=== PATIENT | female | born 1955 | race Caucasian/White ===

== ENCOUNTER 2019-01-06 13:29 | Observation (INO) ==
--- NOTE | 2019-01-06 13:46 | Emergency Department Note ---
Disposition Clinical Impression: Elevated transaminase level, Generalized weakness, Altered mental status, unspecified, Chronic kidney disease Disposition: Admitted As Inpatient Condition: Good General Adult HPI - General Chief complaint: ED Dizziness Stated complaint: headache,dizzy,nausea Time Seen by Provider: 01/06/19 13:44 Source: patient, family Limitations: no limitations - History of Present Illness Pain Scale: 10 - Related Data Home Medications Medication Instructions Recorded Confirmed Acetaminophen/Butalbital/Caffe 1 each PO Q6HR PRN 01/06/19 01/06/19 [Fioricet] Aspirin [Lo-Dose Aspirin EC] 81 mg PO DAILY 01/06/19 01/06/19 Furosemide [Lasix] 20 mg PO DAILY PRN 01/06/19 01/06/19 L. Acidophilus/Bifid. Animalis 1 each PO DAILY 01/06/19 01/06/19 [One-A-Day Trubiotics 2 Bill Cp] Levothyroxine [Synthroid] 37.5 mcg PO 0630 01/06/19 01/06/19 RX: Amlodipine Besylate 10 mg PO DAILY 01/06/19 01/06/19 RX: Atenolol [Tenormin] 50 - 75 mg PO HS PRN 01/06/19 01/06/19 RX: Famotidine [Pepcid] 20 mg PO DAILY 01/06/19 01/06/19 RX: Simvastatin [Zocor] 40 mg PO HS 01/06/19 01/06/19 RX: Spironolactone 50 mg PO BID 01/06/19 01/06/19 RX: Tizanidine HCl 4 mg PO Q6H 01/06/19 01/06/19 RX: cloNIDine HCl [CloNIDine HCl] 0.1 mg PO BID PRN 01/06/19 01/06/19 Tramadol HCl [Ultram] 50 mg PO Q6H 01/06/19 01/06/19 clonazePAM [Clonazepam] 1 mg PO Q6H 01/06/19 01/06/19 Allergies Allergy/AdvReac Type Severity Reaction Status Date / Time citalopram [From Celexa] Allergy Rash Verified 06/18/18 19:09 glycopyrrolate [From Robinul] Allergy Redness of Verified 06/18/18 19:09 Skin NSAIDS (Non-Steroidal AdvReac See Verified 01/06/19 15:55 Anti-Inflamma Comments IVP Dye Allergy Redness of Uncoded 08/14/15 11:00 Skin Past Medical History - Past Medical History Medical history: Reports: cancer, migraine, renal disease Surgical history: Reports: cholecystectomy, hysterectomy, orthopedic, other Psychiatric history: Reports: no psych history [place] history: Reports: cervical cancer - Social History Smoking Status: Never smoker Smokeless Tobacco Status: No Alcohol use: Reports: none Drug use: Reports: none Physical Exam - General Limitations: no limitations General appearance: alert, lethargic Course Vital Signs Temperature 0 F L 01/06/19 13:36 Pulse Rate 49 01/06/19 13:36 Respiratory Rate 16 01/06/19 13:36 Blood Pressure 86/58 01/06/19 13:36 O2 Sat by Pulse Oximetry 96 01/06/19 13:36 Temperature 97.5 F L 01/07/19 07:50 Pulse Rate 55 01/07/19 07:50 Respiratory Rate 17 01/07/19 07:50 Blood Pressure 112/73 01/07/19 07:50 O2 Sat by Pulse Oximetry 100 01/07/19 08:40 Oxygen Delivery Oxygen Delivery Room Air Medical Decision Making - Lab Data Result diagrams: 01/07/19 05:00 01/07/19 05:00 Lab Results 01/06/19 01/06/19 01/06/19 Range/Units 14:00 14:00 14:00 WBC 6.5 (4.3-11.1) K/mcL RBC 3.89 (3.82-4.97) M/mcL Hgb 11.9 (11.5-15.4) g/dL Hct 36.1 (35.3-44.9) % MCV 92.8 (83.0-100.0) fL MCH 30.6 (28.0-33.3) pg MCHC 33.0 (31.6-35.5) g/dL RDW 13.1 (11.5-14.5) % Plt Count 301 (140-400) K/mcL MPV 10.1 (9.4-12.4) fL Immature Gran % 0.3 (0-4) % Seg Neutrophils % 37.8 % Lymphocytes % 53.5 % Monocytes % 7.8 % Eosinophils % 0.3 % Basophils % 0.3 % Neutrophils # 2.5 (1.6-8.9) K/mcL Lymphocytes # 3.5 (0.6-4.6) K/mcL Monocytes # 0.5 (0.0-1.3) K/mcL Eosinophils # 0.0 (0.0-0.6) K/mcL Basophils # 0.0 (0.0-0.2) K/mcL PT (9.4-12.1) Seconds INR APTT (26.0-36.0) Seconds Sodium 137 (136-145) mEq/L Potassium 4.0 (3.5-5.1) mEq/L Chloride 102 (98-107) mEq/L Carbon Dioxide 25 (23-29) mEq/L BUN 14 (8-23) mg/dL Creatinine 1.51 H (0.60-1.20) mg/dL Est GFR ( Amer) 42 L (> 60) Est GFR (Non-Af Amer) 35 L (> 60) BUN/Creatinine Ratio 9 (6-26) Glucose 91 (70-105) mg/dL Calculated Osmolality 284 (280-300) Calcium 9.9 (8.6-10.3) mg/dL Total Bilirubin 0.5 (0.3-1.0) mg/dL AST 124 H (13-39) Units/L ALT 54 H (7-52) Units/L Alkaline Phosphatase 112 H (34-104) Units/L Ammonia 38 (16-53) mcmol/L Troponin I < 0.03 (< 0.04) ng/mL Serum Total Protein 7.5 (6.4-8.9) g/dL Albumin 4.5 (3.5-5.7) g/dL Globulin 3.0 (2.4-3.5) g/dL Albumin/Globulin Ratio 1.5 (1.1-2.2) Urine Color (Yellow) Urine Clarity (Clear) Urine pH (5.0-8.0) pH Units Ur Specific [place] (1.010-1.025) Urine Protein (Neg-Trace) mg/dL Urine Glucose (UA) (Normal) mg/dL Urine Ketones (Negative) mg/dL Urine Blood (Negative) Urine Nitrite (Negative) Urine Bilirubin (Negative) Urine Urobilinogen (Normal) mg/dL Ur Leukocyte Esterase (Negative) Urine Microscopic RBC (0-3) per hpf Urine Microscopic WBC (0-3) per hpf Ur Squamous Epith Cells (None-Few) per lpf Urine Bacteria (None-Few) per hpf Hyaline Casts (None-Few) per lpf Ur Culture Indicated? (NO) Ethyl Alcohol (Less than 10) mg/dL 01/06/19 01/06/19 01/06/19 Range/Units 14:00 15:41 15:44 WBC (4.3-11.1) K/mcL RBC (3.82-4.97) M/mcL Hgb (11.5-15.4) g/dL Hct (35.3-44.9) % MCV (83.0-100.0) fL MCH (28.0-33.3) pg MCHC (31.6-35.5) g/dL RDW (11.5-14.5) % Plt Count (140-400) K/mcL MPV (9.4-12.4) fL Immature Gran % (0-4) % Seg Neutrophils % % Lymphocytes % % Monocytes % % Eosinophils % % Basophils % % Neutrophils # (1.6-8.9) K/mcL Lymphocytes # (0.6-4.6) K/mcL Monocytes # (0.0-1.3) K/mcL Eosinophils # (0.0-0.6) K/mcL Basophils # (0.0-0.2) K/mcL PT 11.3 (9.4-12.1) Seconds INR 1.0 APTT 34.2 (26.0-36.0) Seconds Sodium (136-145) mEq/L Potassium (3.5-5.1) mEq/L Chloride (98-107) mEq/L Carbon Dioxide (23-29) mEq/L BUN (8-23) mg/dL Creatinine (0.60-1.20) mg/dL Est GFR ( Amer) (> 60) Est GFR (Non-Af Amer) (> 60) BUN/Creatinine Ratio (6-26) Glucose (70-105) mg/dL Calculated Osmolality (280-300) Calcium (8.6-10.3) mg/dL Total Bilirubin (0.3-1.0) mg/dL AST (13-39) Units/L ALT (7-52) Units/L Alkaline Phosphatase (34-104) Units/L Ammonia (16-53) mcmol/L Troponin I (< 0.04) ng/mL Serum Total Protein (6.4-8.9) g/dL Albumin (3.5-5.7) g/dL Globulin (2.4-3.5) g/dL Albumin/Globulin Ratio (1.1-2.2) Urine Color Yellow (Yellow) Urine Clarity Clear (Clear) Urine pH 6.0 (5.0-8.0) pH Units Ur Specific [place] 1.008 L (1.010-1.025) Urine Protein Negative (Neg-Trace) mg/dL Urine Glucose (UA) Normal (Normal) mg/dL Urine Ketones Negative (Negative) mg/dL Urine Blood Negative (Negative) Urine Nitrite Negative (Negative) Urine Bilirubin Negative (Negative) Urine Urobilinogen Normal (Normal) mg/dL Ur Leukocyte Esterase Small H (Negative) Urine Microscopic RBC 0-3 (0-3) per hpf Urine Microscopic WBC 0-3 (0-3) per hpf Ur Squamous Epith Cells Many H (None-Few) per lpf Urine Bacteria None Seen (None-Few) per hpf Hyaline Casts None Seen (None-Few) per lpf Ur Culture Indicated? NO. A (NO) Ethyl Alcohol < 10 (Less than 10) mg/dL Attestation Statement - Attestation Attestation: I examined this patient and my medical decision-making was reviewed with the Resident Physician. I agree with the documented findings, disposition and treatment plan as described except to the extent set forth below. [id number] time provided Patient is alert and answers questions appropriately but does seem sleepy upon arrival. She asks for water upon arrival. I evaluated her in conjunction with the resident physician Dr. Francis.
[2019-01-06] MEDS ORDERED: Metoclopramide 10 MG/2 ML VIAL IVP ONE (13:55)
[2019-01-06] MEDS ORDERED: 0.9 % Sodium Chloride 1,000 ML IVC ONE ×2 (13:55→15:29)
--- NOTE | 2019-01-06 13:55 | Emergency Department Note ---
Disposition Clinical Impression: Elevated transaminase level, Generalized weakness Altered mental status, unspecified Qualifiers: Altered mental status type: unspecified Qualified Code(s): R41.82 - Altered mental status, unspecified Chronic kidney disease Qualifiers: Chronic kidney disease stage: unspecified stage Qualified Code(s): N18.9 - Chronic kidney disease, unspecified Disposition: Admitted As Inpatient Condition: Good Time of Disposition: 18:13 General Adult HPI - General Chief complaint: ED Dizziness Stated complaint: headache,dizzy,nausea Time Seen by Provider: 01/06/19 13:44 Source: patient, family Limitations: no limitations Nursing Notes Reviewed: Yes Vital Signs Reviewed: Yes - History of Present Illness HPI Narrative: 63-year-old female history of chronic kidney disease presents to the emergency department for weakness headache and dizziness. States for the past few days she has been more weak. She began developing a headache to the left side. She has photophobia with nausea. No vomiting. She has a history of migraines sta eric this feels similar. She denies any fevers. She does report recent coffin congestion. She is experiencing some chest discomfort in the mid epigastric region without radiation. She was told by her car unloader Dr. Noriega to increase her fluid intake. Due to her illness she has not been drinking as much. She denies any urinary symptoms. She did have a influenza vaccine this year. History of hysterectomy and cholecystectomy. Pain Scale: 10 - Related Data Home Medications Medication Instructions Recorded Confirmed Acetaminophen/Butalbital/Caffe 1 each PO Q6HR PRN 01/06/19 01/06/19 [Fioricet] Amlodipine Besylate 10 mg PO DAILY 01/06/19 01/06/19 Aspirin [Lo-Dose Aspirin EC] 81 mg PO DAILY 01/06/19 01/06/19 Atenolol [Tenormin] 50 - 75 mg PO HS PRN 01/06/19 01/06/19 Famotidine [Pepcid] 20 mg PO DAILY 01/06/19 01/06/19 Furosemide [Lasix] 20 mg PO DAILY PRN 01/06/19 01/06/19 L. Acidophilus/Bifid. Animalis 1 each PO DAILY 01/06/19 01/06/19 [One-A-Day Trubiotics 2 Bill Cp] Levothyroxine [Synthroid] 37.5 mcg PO 0630 01/06/19 01/06/19 Simvastatin [Zocor] 40 mg PO HS 01/06/19 01/06/19 Spironolactone 50 mg PO BID 01/06/19 01/06/19 Tizanidine HCl 4 mg PO Q6H 01/06/19 01/06/19 Tramadol HCl [Ultram] 50 mg PO Q6H 01/06/19 01/06/19 cloNIDine HCl [CloNIDine HCl] 0.1 mg PO BID PRN 01/06/19 01/06/19 clonazePAM [Clonazepam] 1 mg PO Q6H 01/06/19 01/06/19 Allergies Allergy/AdvReac Type Severity Reaction Status Date / Time citalopram [From Celexa] Allergy Rash Verified 06/18/18 19:09 glycopyrrolate [From Robinul] Allergy Redness of Verified 06/18/18 19:09 Skin NSAIDS (Non-Steroidal AdvReac See Verified 01/06/19 15:55 Anti-Inflamma Comments IVP Dye Allergy Redness of Uncoded 08/14/15 11:00 Skin All systems ED: reviewed and negative except as stated. Review of Systems: As Per HPI Constitutional: Reports: weakness. Denies: fever, chills ENT ED: Reports: congestion Cardiovascular: Reports: chest pain Respiratory: Reports: cough. Denies: dyspnea Gastrointestinal: Reports: abdominal pain, nausea. Denies: vomiting, diarrhea, constipation Genitourinary: Denies: dysuria Musculoskeletal: Denies: back pain, neck pain Neurological: Reports: headache. Denies: weakness, numbness, confusion Endocrine: Reports: fatigue Past Medical History - Past Medical History Attestation: Yes The following information was validated with the patient. Source: patient Medical history: Reports: cancer, migraine, renal disease Surgical history: Reports: cholecystectomy, hysterectomy, orthopedic, other Psychiatric history: Reports: no psych history [employer] history: Reports: cervical cancer - Social History Smoking Status: Never smoker Smokeless Tobacco Status: No Alcohol use: Reports: none Drug use: Reports: none Physical Exam - General Limitations: no limitations General appearance: alert, in distress, other (Patient appears weak and ill) - Head Head exam: atraumatic, normocephalic, normal inspection - Eye Eye exam: Present: normal appearance, PERRL, EOMI, other (Pale conjunctiva). A bsent: scleral icterus - ENT ENT exam: normal exam, normal oropharynx, mucous membranes dry - Neck Neck exam: Present: normal inspection, full ROM, trachea midline. Absent: meningismus - Expanded Neck Exam Neck exam focused ED: Present: paraspinal tenderness. Absent: midline tende rness - Chest Chest inspection: Present: normal inspection, symmetric chest wall rise. Absent: tenderness - Respiratory Respiratory exam: Present: normal lung sounds bilaterally - Cardiovascular Cardiovascular exam: Present: regular rate, normal rhythm, normal heart sounds - Expanded Cardiovascular Exam Peripheral pulses: 2+: radial (R), radial (L) - Abdominal Exam Abdominal exam: Present: soft, Non-Tender, normal bowel sounds. Absent: tenderness, distention, guarding, rebound, rigidity - Extremities Exam Extremities exam: Present: normal inspection, full ROM, normal capillary refill. Absent: tenderness, pedal edema - Neurological Exam Neurological exam: Present: alert, oriented X3, CN II-XII intact, other (no aste rixis) - Expanded Neurological Exam Patient oriented to: Present: person, place, time Speech: Present: fluid speech Cranial nerves: EOM function (II, III, IV, ): Normal, facial sensation (V): Normal, facial palsy (VII): Normal, gag reflex (IX): Normal, spinal accessory function (XI): Normal, tongue deviation (XII): Normal Motor strength - LUE: 5/5 Motor strength - RUE: 5/5 Motor strength - LLE: 5/5 Motor strength - RLE: 5/5 Upper motor neuron exam: maye neglect: Absent bilaterally, pronator drift: Absent bilaterally Sensory exam upper extremity: light touch: Normal Sensory exam lower extremity: light touch: Normal Coma Scale Eye Opening: Spontaneous Coma Scale Motor Response: Obeys Commands Coma Scale Verbal Response: Oriented Coma Scale Total: 15 - Psychiatric Psychiatric exam: Present: normal affect, normal mood - Skin Skin exam: Present: warm, dry, intact, pallor. Absent: rash, cyanosis, diaphoresis Course Course Narrative: Patient presents with weakness and dizziness. Her blood pressure is low systolic 90s. She is not tachycardic her febrile. Neurologic exam is normal without focal deficits. Will check some labs include ammonia level. She reports a history of chronic kidney disease and suspect possible uremia. Will obtain a urinalysis as well. Patients agreeable to this plan. - Reevaluation(s) Reevaluation #1: Creatinine 1.5. This appears to be at her baseline. Her labs are otherwise unremarkable other than slightly elevated AST and ALT from baseline. She reports a history of hepatitis A as a child. She does not appear jaundice. CT scan of the abdomen did not reveal any intra-abdominal etiology. Diverticulosis was seen and no evidence of diverticulitis. Her abdominal pain and symptoms have gradually improved. She does report recent viral illness. Her influenza was negative. Do not suspect meningitis at this time. Her hypotension responded well to fluids. Last BP 106/64. Her a headache appears migrainous. She was given Reglan 10 mg, she is feeling better. She admits to a poor diet home given her history of chronic kidney disease. Review of her medication list shows multiple benzodiazepines. Suspect this could also be a common etiology for her symptoms. At this time will plan for admission given her generalized weakness and altered mental status for continued monitoring. - Consultations Consultation #1: Spoke with on-call hospitalist marques Flanagan to admit for AMS, generalized weakness. No further orders at this time Vital Signs Temperature 0 F L 01/06/19 13:36 Pulse Rate 49 01/06/19 13:36 Respiratory Rate 16 01/06/19 13:36 Blood Pressure 86/58 01/06/19 13:36 O2 Sat by Pulse Oximetry 96 01/06/19 13:36 Temperature 0 F L 01/06/19 13:36 Pulse Rate 59 01/06/19 16:52 Respiratory Rate 14 01/06/19 16:52 Blood Pressure 106/64 01/06/19 16:52 O2 Sat by Pulse Oximetry 100 01/06/19 16:52 Oxygen Delivery Oxygen Delivery Room Air Medical Decision Making - MDM Narrative Medical decision making narrative: Patient was discussed with my attending physician who agrees with ED management and final disposition. They independently evaluated the patient. Please refer to their attestation to this encounter for additional information. This note was generated by [employer] voice recognition software and as a result grammatical or spelling errors may occur using this program. - Medical Records Medical records reviewed: Yes I reviewed the patient's medical records. - Lab Data Lab results reviewed: Yes I reviewed the patient's lab results. Result diagrams: 01/06/19 14:00 01/06/19 14:00 Lab Results 01/06/19 01/06/19 01/06/19 Range/Units 14:00 14:00 14:00 WBC 6.5 (4.3-11.1) K/mcL RBC 3.89 (3.82-4.97) M/mcL Hgb 11.9 (11.5-15.4) g/dL Hct 36.1 (35.3-44.9) % MCV 92.8 (83.0-100.0) fL MCH 30.6 (28.0-33.3) pg MCHC 33.0 (31.6-35.5) g/dL RDW 13.1 (11.5-14.5) % Plt Count 301 (140-400) K/mcL MPV 10.1 (9.4-12.4) fL Immature Gran % 0.3 (0-4) % Seg Neutrophils % 37.8 % Lymphocytes % 53.5 % Monocytes % 7.8 % Eosinophils % 0.3 % Basophils % 0.3 % Neutrophils # 2.5 (1.6-8.9) K/mcL Lymphocytes # 3.5 (0.6-4.6) K/mcL Monocytes # 0.5 (0.0-1.3) K/mcL Eosinophils # 0.0 (0.0-0.6) K/mcL Basophils # 0.0 (0.0-0.2) K/mcL PT (9.4-12.1) Seconds INR APTT (26.0-36.0) Seconds Sodium 137 (136-145) mEq/L Potassium 4.0 (3.5-5.1) mEq/L Chloride 102 (98-107) mEq/L Carbon Dioxide 25 (23-29) mEq/L BUN 14 (8-23) mg/dL Creatinine 1.51 H (0.60-1.20) mg/dL Est GFR ( Amer) 42 L (> 60) Est GFR (Non-Af Amer) 35 L (> 60) BUN/Creatinine Ratio 9 (6-26) Glucose 91 (70-105) mg/dL Calculated Osmolality 284 (280-300) Calcium 9.9 (8.6-10.3) mg/dL Total Bilirubin 0.5 (0.3-1.0) mg/dL AST 124 H (13-39) Units/L ALT 54 H (7-52) Units/L Alkaline Phosphatase 112 H (34-104) Units/L Ammonia 38 (16-53) mcmol/L Troponin I < 0.03 (< 0.04) ng/mL Serum Total Protein 7.5 (6.4-8.9) g/dL Albumin 4.5 (3.5-5.7) g/dL Globulin 3.0 (2.4-3.5) g/dL Albumin/Globulin Ratio 1.5 (1.1-2.2) Urine Color (Yellow) Urine Clarity (Clear) Urine pH (5.0-8.0) pH Units Ur Specific [place] (1.010-1.025) Urine Protein (Neg-Trace) mg/dL Urine Glucose (UA) (Normal) mg/dL Urine Ketones (Negative) mg/dL Urine Blood (Negative) Urine Nitrite (Negative) Urine Bilirubin (Negative) Urine Urobilinogen (Normal) mg/dL Ur Leukocyte Esterase (Negative) Urine Microscopic RBC (0-3) per hpf Urine Microscopic WBC (0-3) per hpf Ur Squamous Epith Cells (None-Few) per lpf Urine Bacteria (None-Few) per hpf Hyaline Casts (None-Few) per lpf Ur Culture Indicated? (NO) Ethyl Alcohol (Less than 10) mg/dL 01/06/19 01/06/19 01/06/19 Range/Units 14:00 15:41 15:44 WBC (4.3-11.1) K/mcL RBC (3.82-4.97) M/mcL Hgb (11.5-15.4) g/dL Hct (35.3-44.9) % MCV (83.0-100.0) fL MCH (28.0-33.3) pg MCHC (31.6-35.5) g/dL RDW (11.5-14.5) % Plt Count (140-400) K/mcL MPV (9.4-12.4) fL Immature Gran % (0-4) % Seg Neutrophils % % Lymphocytes % % Monocytes % % Eosinophils % % Basophils % % Neutrophils # (1.6-8.9) K/mcL Lymphocytes # (0.6-4.6) K/mcL Monocytes # (0.0-1.3) K/mcL Eosinophils # (0.0-0.6) K/mcL Basophils # (0.0-0.2) K/mcL PT 11.3 (9.4-12.1) Seconds INR 1.0 APTT 34.2 (26.0-36.0) Seconds Sodium (136-145) mEq/L Potassium (3.5-5.1) mEq/L Chloride (98-107) mEq/L Carbon Dioxide (23-29) mEq/L BUN (8-23) mg/dL Creatinine (0.60-1.20) mg/dL Est GFR ( Amer) (> 60) Est GFR (Non-Af Amer) (> 60) BUN/Creatinine Ratio (6-26) Glucose (70-105) mg/dL Calculated Osmolality (280-300) Calcium (8.6-10.3) mg/dL Total Bilirubin (0.3-1.0) mg/dL AST (13-39) Units/L ALT (7-52) Units/L Alkaline Phosphatase (34-104) Units/L Ammonia (16-53) mcmol/L Troponin I (< 0.04) ng/mL Serum Total Protein (6.4-8.9) g/dL Albumin (3.5-5.7) g/dL Globulin (2.4-3.5) g/dL Albumin/Globulin Ratio (1.1-2.2) Urine Color Yellow (Yellow) Urine Clarity Clear (Clear) Urine pH 6.0 (5.0-8.0) pH Units Ur Specific [place] 1.008 L (1.010-1.025) Urine Protein Negative (Neg-Trace) mg/dL Urine Glucose (UA) Normal (Normal) mg/dL Urine Ketones Negative (Negative) mg/dL Urine Blood Negative (Negative) Urine Nitrite Negative (Negative) Urine Bilirubin Negative (Negative) Urine Urobilinogen Normal (Normal) mg/dL Ur Leukocyte Esterase Small H (Negative) Urine Microscopic RBC 0-3 (0-3) per hpf Urine Microscopic WBC 0-3 (0-3) per hpf Ur Squamous Epith Cells Many H (None-Few) per lpf Urine Bacteria None Seen (None-Few) per hpf Hyaline Casts None Seen (None-Few) per lpf Ur Culture Indicated? NO. A (NO) Ethyl Alcohol < 10 (Less than 10) mg/dL - Radiology Data Radiology results reviewed: Yes I reviewed the patient's radiology results. Chest X-Ray 01/06/19 13:51 IMPRESSION: No acute process. Stable exam D/ / Lionel Galdamez MD / Lionel Galdamez MD Interpreting Provider: Lionel Galdamez MD Head CT 01/06/19 13:51 IMPRESSION: No acute intracranial abnormality. D/ / Wm Harry / Wm Harry Interpreting Provider: Wm Harry Abdomen/Pelvis CT 01/06/19 15:35 IMPRESSION: 1. No acute abnormality within the abdomen and pelvis. 2. Status post cholecystectomy and hysterectomy. 3. Colonic diverticulosis without evidence of acute diverticulitis. D/ / Mulugeta Westbrook MD / Mulugeta Westbrook MD Interpreting Provider: Mulugeta Westbrook MD - EKG Data EKG #1 EKG attestation: Yes I reviewed and interpreted this EKG. EKG results narrative: EKG performed 1350 normal sinus rhythm 54 beats per minute, normal axis, good R wave progression, no ST elevation or depression. Compared to prior EKG performed 06/10/2014 with similar consistent findings. No acute ischemic changes.
[2019-01-06 14:16] LABS: Basophils % 0.3 %; Eosinophils % 0.3 %; Hematocrit 36.1 % (35.3-44.9); Hemoglobin 11.9 g/dL (11.5-15.4); Immature Granulocytes % 0.3 % (0-4); Lymphocytes # 3.5 K/mcL (0.6-4.6); Lymphocytes % 53.5 %; Mean Corpuscular Hemoglobin 30.6 pg (28.0-33.3); Mean Corpuscular Volume 92.8 fL (83.0-100.0); Mean Platelet Volume 10.1 fL (9.4-12.4); Monocytes # 0.5 K/mcL (0.0-1.3); Monocytes % 7.8 %; Neutrophils # 2.5 K/mcL (1.6-8.9); Platelet Count 301 K/mcL (140-400); Red Blood Count 3.89 M/mcL (3.82-4.97); Red Cell Distribution Width 13.1 % (11.5-14.5); Segmented Neutrophils % 37.8 %
[2019-01-06 14:27] LABS: Prothrombin Time 11.3 Seconds (9.4-12.1)
[2019-01-06 14:29] LABS: Activated Partial Thrombo Time 34.2 Seconds (26.0-36.0)
[2019-01-06 14:45] LABS: Alanine Aminotransferase 54 Units/L (7-52); Albumin 4.5 g/dL (3.5-5.7); Albumin/Globulin Ratio 1.5 (1.1-2.2); Alkaline Phosphatase 112 Units/L (34-104); Aspartate Amino Transferase 124 Units/L (13-39); BUN/Creatinine Ratio 9 (6-26); Bilirubin,Total 0.5 mg/dL (0.3-1.0); Blood Urea Nitrogen 14 mg/dL (8-23); Calcium 9.9 mg/dL (8.6-10.3); Carbon Dioxide 25 mEq/L (23-29); Chloride 102 mEq/L (98-107); Glucose 91 mg/dL (70-105); Osmolality,Calculated 284 (280-300); Sodium 137 mEq/L (136-145); Total Protein 7.5 g/dL (6.4-8.9); Troponin I < 0.03 ng/mL (< 0.04); eGFR For Non-African Americans 35 (> 60)
[2019-01-06] MEDS ORDERED: 0.9 % Sodium Chloride 1,000 ML ONE (15:31)
[2019-01-06 15:59] LABS: Bilirubin,Urine Negative (Negative); Blood,Urine Negative (Negative); Clarity,Urine Clear (Clear); Color,Urine Yellow (Yellow); Glucose,Urine (UA) Normal (Normal); Ketones,Urine Negative (Negative); Leukocyte Esterase,Urine Small (Negative); Nitrite,Urine Negative (Negative); Protein,Urine Negative (Neg-Trace); Specific Gravity,Urine 1.008 (1.010-1.025); Urobilinogen,Urine Normal (Normal)
[2019-01-06 16:00] LABS: Bacteria,Urine None Seen per hpf (None-Few); Hyaline Casts,Urine None Seen per lpf (None-Few); RBC,Urine 0-3 per hpf (0-3); Squamous Epithelial Cell,Urine Many per lpf (None-Few); WBC,Urine 0-3 per hpf (0-3)
[2019-01-06] MEDS ORDERED: *HR* Promethazine 25 MG/ML VIAL IVP PRN (18:13)
[2019-01-06] MEDS ORDERED: Naloxone 0.4 MG/ML INJ IVP PRN (18:13)
[2019-01-06] MEDS ORDERED: Ondansetron 4 MG/2 ML VIAL IVP PRN (18:13)
[2019-01-06] MEDS ORDERED: MOM Conc 10 ML UD.LIQ PO PRN (18:13)
--- NOTE | 2019-01-06 18:23 | Internal Med History&Physical ---
Date of Encounter: 01/06/19 Time of Encounter: 18:21 Internal Medicine - H&P: HPI Admitted From: Home Plans for Post Hospital Care: Home History of present illness: Ms. Martinez is a 63 year old female history of chronic kidney disease presents to the emergency department for weakness headache and dizziness. States for the past few days she has been more weak. She began developing a headache to the left side. She has photophobia with nausea. No vomiting. She has a history of migraines states this feels similar. She denies any fevers. She does report recent cough and congestion. She is experiencing some chest discomfort in the mid epigastric region without radiation. She was told by her administrative volunteer Dr. Noriega to increase her fluid intake. Due to her illness she has not been drinking as much. She denies any urinary symptoms. She did have a influenza vaccine this year. History of hysterectomy and cholecystectomy. In the ED, she was notable to have low blood pressure and bradycardia. Labs revealed elevated AST/LT/LP, elevated BUN/creatinine and a creatinine. Patient will be admitted for further evaluation. Patient will be full code while in the hospital. Past Med Surg Social Fam HX - Past Medical History Medical history: cancer, migraine, renal disease Additional medical history: Cervical CA Psychiatric history: no psych history - Past Surgical History Surgical History: cholecystectomy, hysterectomy, orthopedic, other Additional surgical history: Kidney - Social History Smoking Status: Never smoker Smokeless Tobacco Status: No Alcohol use: none Drug use: none Internal Medicine - H&P: Meds Acetaminophen/Butalbital/Caffe [Fioricet] 1 each PO Q6HR PRN 01/06/19 [History] Amlodipine Besylate 10 mg PO DAILY 01/06/19 [History] Aspirin [Lo-Dose Aspirin EC] 81 mg PO DAILY 01/06/19 [History] Atenolol [Tenormin] 50 - 75 mg PO HS PRN 01/06/19 [History] Famotidine [Pepcid] 20 mg PO DAILY 01/06/19 [History] Furosemide [Lasix] 20 mg PO DAILY PRN 01/06/19 [History] L. Acidophilus/Bifid. Animalis [One-A-Day Trubiotics 2 Bill Cp] 1 each PO DAILY 01/06/19 [History] Levothyroxine [Synthroid] 37.5 mcg PO 0630 01/06/19 [History] Simvastatin [Zocor] 40 mg PO HS 01/06/19 [History] Spironolactone 50 mg PO BID 01/06/19 [History] Tizanidine HCl 4 mg PO Q6H 01/06/19 [History] Tramadol HCl [Ultram] 50 mg PO Q6H 01/06/19 [History] cloNIDine HCl [CloNIDine HCl] 0.1 mg PO BID PRN 01/06/19 [History] clonazePAM [Clonazepam] 1 mg PO Q6H 01/06/19 [History] Allergy/AdvReac Type Severity Reaction Status Date / Time citalopram [From Celexa] Allergy Rash Verified 06/18/18 19:09 glycopyrrolate [From Robinul] Allergy Redness of Verified 06/18/18 19:09 Skin NSAIDS (Non-Steroidal AdvReac See Verified 01/06/19 15:55 Anti-Inflamma Comments IVP Dye Allergy Redness of Uncoded 08/14/15 11:00 Skin All Systems PM: A 10-system review of systems was performed and is negative for pertinent findings except as documented above in the HPI. Review of systems: REVIEW OF SYSTEMS: CONSTITUTIONAL: see HPI. HEENT: see HPI SKIN: No rash or itching. CARDIOVASCULAR: No palpitations or edema. RESPIRATORY: No shortness of breath, cough or sputum. GASTROINTESTINAL: No anorexia, nausea, vomiting or diarrhea. No abdominal pain or blood. GENITOURINARY: No dysuria, urgency, or frequency. NEUROLOGICAL: No headache, dizziness, syncope, paralysis, ataxia, numbness or tingling in the extremities. No change in bowel or bladder control. MUSCULOSKELETAL: No muscle, back pain, joint pain or stiffness. HEMATOLOGIC: No anemia, bleeding or bruising. LYMPHATICS: No enlarged nodes. No history of splenectomy. PSYCHIATRIC: No history of depression or anxiety. ENDOCRINOLOGIC: No reports of sweating, cold or heat intolerance. No polyuria or polydipsia. - Constitutional Vitals: Temp Pulse Resp BP Pulse Ox 0 F L 59 14 106/64 100 01/06/19 13:36 01/06/19 16:52 01/06/19 16:52 01/06/19 16:52 01/06/19 16:52 General appearance: Present: A&O X 3 Exam: PHYSICAL EXAMINATION: GENERAL APPEARANCE: The patient is alert, oriented and in no acute distress. HEENT: Head is normocephalic. The sinuses are nontender. Pupils are equal and reactive. The nares are patent. Oropharynx clear without lesions. NECK: neck pain illicited when beding head over to chest. HEART: Regular rate and rhythm. LUNGS: No crackles or wheezes are heard. ABDOMEN: Soft, nontender, nondistended with good bowel sounds heard. Inguinal area is normal. EXTREMITIES: Without cyanosis, clubbing or edema. NEUROLOGICAL: Gross nonfocal. SKIN: Warm and dry without any rash. Internal Med - H&P Results - Labs CBC & Chem 7: 01/06/19 14:00 01/06/19 14:00 Labs: Short CBC 01/06/19 Range/Units 14:00 WBC 6.5 (4.3-11.1) K/mcL Hgb 11.9 (11.5-15.4) g/dL Hct 36.1 (35.3-44.9) % Plt Count 301 (140-400) K/mcL Neutrophils # 2.5 (1.6-8.9) K/mcL BMP 01/06/19 14:00 Sodium 137 Potassium 4.0 Chloride 102 Carbon Dioxide 25 BUN 14 Creatinine 1.51 H Glucose 91 Calcium 9.9 Cardiac Enzymes 01/06/19 Range/Units 14:00 Troponin I < 0.03 (< 0.04) ng/mL Liver Function 01/06/19 Range/Units 14:00 Total Bilirubin 0.5 (0.3-1.0) mg/dL AST 124 H (13-39) Units/L ALT 54 H (7-52) Units/L Alkaline Phosphatase 112 H (34-104) Units/L Albumin 4.5 (3.5-5.7) g/dL Urine 01/06/19 Range/Units 15:41 Urine Color Yellow (Yellow) Urine Clarity Clear (Clear) Urine pH 6.0 (5.0-8.0) pH Units Ur Specific [place] 1.008 L (1.010-1.025) Urine Protein Negative (Neg-Trace) mg/dL Urine Glucose (UA) Normal (Normal) mg/dL - Impressions ITS Impressions Chest X-Ray 01/06/19 13:51 IMPRESSION: No acute process. Stable exam D/ / Lionel Galdamez MD / Lionel Galdamez MD Interpreting Provider: Lionel Galdamez MD Head CT 01/06/19 13:51 IMPRESSION: No acute intracranial abnormality. D/ / Wm Harry / Wm Harry Interpreting Provider: Wm Harry Abdomen/Pelvis CT 01/06/19 15:35 IMPRESSION: 1. No acute abnormality within the abdomen and pelvis. 2. Status post cholecystectomy and hysterectomy. 3. Colonic diverticulosis without evidence of acute diverticulitis. D/ / Mulugeta Westbrook MD / Mulugeta Westbrook MD Interpreting Provider: Mulugeta Westbrook MD - Assessment and Plan (1) Headache Current Visit: Yes Status: Acute Assessment and plan: 63-year-old female with history of migraine presented with acute onset of headache, associated with nausea, photophobia, and neck pain. She also reported change of nature of the headache comparing to her usual migraine headache. She stated the headaches are more severe, with neck pain, and also involved left side of the head, which were different from her usual migraine headache. Patient admitted that her granddaughter was sick recently with cough and congestion, prior to the headache, she also suffered a brief period of congestion and cough. On physical exam, patient does have neck rigidity. Although this appears to be another attack of migraine headache, viral meningitis was also highly suspected. - we will continue to treat patient migraine with Ferrecit, Zofran, aspirin. - We will add Naprosyn if indicated, but cautious about renal toxicity. - Supportive care for possible viral meningitis, if symptoms do not improve overnight, will consider lumbar puncture and MRI brain. Qualifiers: Headache type: unspecified Headache chronicity pattern: acute headache Intractability: not intractable Qualified Code(s): R51 - Headache (2) Generalized weakness Current Visit: Yes Status: Acute Assessment and plan: Continue to treat patient migraine, headache, and GI symptoms. Further workup to pursue if indicated. (3) Elevated transaminase level Current Visit: Yes Status: Acute Assessment and plan: Unknown etiology, patient admitted she has been taking Fioricet recently. Drug induced liver injury is likely. CT abdomen/pelvis was unremarkable. But this non-contrasted study has very limited diagnostic value. We will check viral hepatitis panel, right upper quadrant ultrasound. (4) Chronic kidney disease Current Visit: No Status: Chronic Assessment and plan: Creatinine at the baseline, avoid nephrotoxic Agent. Qualifiers: Chronic kidney disease stage: stage 3 (moderate) Qualified Code(s): N18.3 - Chronic kidney disease, stage 3 (moderate) (5) Migraine Current Visit: No Status: Chronic Assessment and plan: Same as above. Qualifiers: Migraine type: without aura Status migrainosus presence: without status migrainosus Intractability: not intractable Qualified Code(s): G43.009 - Migraine without aura, not intractable, without status migrainosus (6) DVT prophylaxis Current Visit: Yes Status: Acute Assessment and plan: Heparin subcutaneous. - Time Spent With Patient Total time spent is greater than 50% in coordination of care (as documented) at patient's floor/unit and/or counseling patient: Greater than 35 minutes
[2019-01-06] MEDS: tiZANidine 4 MG TABLET PO SCH (20:12)
[2019-01-06] MEDS: traMADol 50 MG TABLET PO SCH (20:12)
[2019-01-06] MEDS: clonazePAM 1 MG TABLET PO SCH (20:12)
[2019-01-06] MEDS: Acetaminophen/Butalbital/CaffeineTABLET PO PRN (20:13)
[2019-01-06] MEDS: Famotidine 20 MG TABLET PO SCH (22:46)
[2019-01-07] MEDS: Acetaminophen/Butalbital/CaffeineTABLET PO PRN ×3 (03:56→19:46)
[2019-01-07 05:46] LABS: Basophils % 0.7 %; Eosinophils % 0.2 %; Hematocrit 34.5 % (35.3-44.9); Hemoglobin 11.3 g/dL (11.5-15.4); Immature Granulocytes % 0.2 % (0-4); Lymphocytes % 43.6 %; Mean Corpuscular HGB Conc 32.8 g/dL (31.6-35.5); Mean Corpuscular Hemoglobin 30.6 pg (28.0-33.3); Mean Corpuscular Volume 93.5 fL (83.0-100.0); Mean Platelet Volume 10.1 fL (9.4-12.4); Monocytes # 0.4 K/mcL (0.0-1.3); Monocytes % 8.1 %; Neutrophils # 2.1 K/mcL (1.6-8.9); Platelet Count 255 K/mcL (140-400); Red Blood Count 3.69 M/mcL (3.82-4.97); Segmented Neutrophils % 47.2 %
[2019-01-07] MEDS: *HR* Heparin 5,000 UNIT/ML VIAL SQ SCH ×2 (06:06→18:17)
[2019-01-07 06:07] LABS: Albumin 4.1 g/dL (3.5-5.7); Albumin/Globulin Ratio 1.5 (1.1-2.2); Bilirubin,Total 0.3 mg/dL (0.3-1.0); Calcium 9.5 mg/dL (8.6-10.3); Globulin 2.7 g/dL (2.4-3.5); Potassium 3.9 mEq/L (3.5-5.1); Total Protein 6.8 g/dL (6.4-8.9)
[2019-01-07 07:29] LABS: Hepatitis B Surface Antigen Nonreactive (Nonreactive)
[2019-01-07] MEDS ORDERED: Famotidine 20 MG TABLET PO SCH (07:30)
[2019-01-07 07:57] LABS: Hepatitis C Virus Antibody Nonreactive (Nonreactive)
[2019-01-07 07:58] LABS: Hepatitis B Core IgM Nonreactive (Nonreactive)
[2019-01-07 07:59] LABS: Hepatitis A Antibody IgM Nonreactive (Nonreactive)
[2019-01-07] MEDS: traMADol 50 MG TABLET PO SCH ×4 (08:44→23:21)
[2019-01-07] MEDS: Famotidine 20 MG TABLET PO SCH (08:44)
[2019-01-07] MEDS: tiZANidine 4 MG TABLET PO SCH ×3 (08:44→18:12)
[2019-01-07] MEDS: clonazePAM 1 MG TABLET PO SCH ×4 (08:44→22:59)
[2019-01-07] MEDS: Aspirin Enteric Coated 81 MG Tablet PO SCH (08:44)
--- NOTE | 2019-01-07 09:36 | Internal Med Progress Note ---
Hospitalist Progress Note - Encounter Date of Encounter: 01/07/19 Time of Encounter: 09:34 - Subjective Interval History: Patient seen and examined in the room, she reported improved neck stiffness and headache. Nausea/vomiting has subsided. - Exam Vitals: Temp Pulse Resp BP Pulse Ox 97.5 F L 55 17 112/73 100 01/07/19 07:50 01/07/19 07:50 01/07/19 07:50 01/07/19 07:50 01/07/19 08:40 Exam: PHYSICAL EXAMINATION: GENERAL APPEARANCE: The patient is alert, oriented and in no acute distress. HEENT: Head is normocephalic. The sinuses are nontender. Pupils are equal and reactive. The nares are patent. Oropharynx clear without lesions. NECK: neck pain illicited when beding head over to chest. HEART: Regular rate and rhythm. LUNGS: No crackles or wheezes are heard. ABDOMEN: Soft, nontender, nondistended with good bowel sounds heard. Inguinal area is normal. EXTREMITIES: Without cyanosis, clubbing or edema. NEUROLOGICAL: Gross nonfocal. SKIN: Warm and dry without any rash. - Assessment and Plan (1) Headache Current Visit: Yes Status: Acute Assessment and Plan: 01/06 63-year-old female with history of migraine presented with acute onset of headache, associated with nausea, photophobia, and neck pain. She also reported change of nature of the headache comparing to her usual migraine headache. She stated the headaches are more severe, with neck pain, and also involved left side of the head, which were different from her usual migraine headache. Patient admitted that her granddaughter was sick recently with cough and pastora estion, prior to the headache, she also suffered a brief period of congestion and cough. On physical exam, patient does have neck rigidity. Although this appears to be another attack of migraine headache, viral meningitis was also highly suspected. - we will continue to treat patient migraine with Ferrecit, Zofran, aspirin. - We will add Naprosyn if indicated, but cautious about renal toxicity. - Supportive care for possible viral meningitis, if symptoms do not improve overnight, will consider lumbar puncture and MRI brain. 01/07 Overall symptoms have improved. We will continue current supportive care. (2) Generalized weakness Current Visit: Yes Status: Acute Assessment and Plan: Continue to treat patient migraine, headache, and GI symptoms. Further workup to pursue if indicated. (3) Elevated transaminase level Current Visit: Yes Status: Acute Assessment and Plan: Unknown etiology, patient admitted she has been taking Fioricet recently. Drug induced liver injury is likely. CT abdomen/pelvis was unremarkable. But this non-contrasted study has very limited diagnostic value. Negative viral hepatitis panel, pending liver ultrasound. (4) Chronic kidney disease Current Visit: No Status: Chronic Assessment and Plan: Creatinine at the baseline, avoid nephrotoxic Agent. (5) Migraine Current Visit: No Status: Chronic Assessment and Plan: Same as above. (6) DVT prophylaxis Current Visit: Yes Status: Acute Assessment and Plan: Heparin subcutaneous. - Time Spent with Patient Total time spent is greater than 50% in coordination of care (as documented) at patient's floor/unit and/or counseling patient: Greater than 35 minutes Plan of Care Discussed with: patient Internal Medicine: Result - Labs CBC & Chem 7: 01/07/19 05:00 01/07/19 05:00 Labs: Short CBC 01/06/19 01/07/19 Range/Units 14:00 05:00 WBC 6.5 4.5 (4.3-11.1) K/mcL Hgb 11.9 11.3 L (11.5-15.4) g/dL Hct 36.1 34.5 L (35.3-44.9) % Plt Count 301 255 (140-400) K/mcL Neutrophils # 2.5 2.1 (1.6-8.9) K/mcL BMP 01/06/19 01/07/19 14:00 05:00 Sodium 137 141 Potassium 4.0 3.9 Chloride 102 106 Carbon Dioxide 25 23 BUN 14 15 Creatinine 1.51 H 1.24 H Glucose 91 82 Calcium 9.9 9.5 Cardiac Enzymes 01/06/19 Range/Units 14:00 Troponin I < 0.03 (< 0.04) ng/mL Liver Function 01/06/19 01/07/19 Range/Units 14:00 05:00 Total Bilirubin 0.5 0.3 (0.3-1.0) mg/dL AST 124 H 57 H (13-39) Units/L ALT 54 H 56 H (7-52) Units/L Alkaline Phosphatase 112 H 109 H (34-104) Units/L Albumin 4.5 4.1 (3.5-5.7) g/dL Urine 01/06/19 Range/Units 15:41 Urine Color Yellow (Yellow) Urine Clarity Clear (Clear) Urine pH 6.0 (5.0-8.0) pH Units Ur Specific [place] 1.008 L (1.010-1.025) Urine Protein Negative (Neg-Trace) mg/dL Urine Glucose (UA) Normal (Normal) mg/dL - ABG Interpretation ABG results: PT/INR, D-dimer PT 11.3 Seconds (9.4-12.1) 01/06/19 14:00 - Impressions Impressions Chest X-Ray 01/06/19 13:51 IMPRESSION: No acute process. Stable exam D/ / Lionel Galdamez MD / Lionel Galdamez MD Interpreting Provider: Lionel Galdamez MD Head CT 01/06/19 13:51 IMPRESSION: No acute intracranial abnormality. D/ / Wm Harry / Wm Harry Interpreting Provider: Wm Harry Abdomen/Pelvis CT 01/06/19 15:35 IMPRESSION: 1. No acute abnormality within the abdomen and pelvis. 2. Status post cholecystectomy and hysterectomy. 3. Colonic diverticulosis without evidence of acute diverticulitis. D/ / Mulugeta Westbrook MD / Mulugeta Westbrook MD Interpreting Provider: Mulugeta Westbrook MD Consult Discharge Plan - Plan Referrals: Jose G Salazar DO [Primary Care Provider] - (1) Headache Qualifiers: Headache type: unspecified Headache chronicity pattern: acute headache Intractability: not intractable Qualified Code(s): R51 - Headache (4) Chronic kidney disease Qualifiers: Chronic kidney disease stage: stage 3 (moderate) Qualified Code(s): N18.3 - Chronic kidney disease, stage 3 (moderate) (5) Migraine Qualifiers: Migraine type: without aura Status migrainosus presence: without status migrainosus Intractability: not intractable Qualified Code(s): G43.009 - Migraine without aura, not intractable, without status migrainosus
[2019-01-08] MEDS: tiZANidine 4 MG TABLET PO SCH ×2 (01:02→07:53)
[2019-01-08] MEDS: Acetaminophen/Butalbital/CaffeineTABLET PO PRN ×2 (04:34→11:22)
[2019-01-08] MEDS: *HR* Heparin 5,000 UNIT/ML VIAL SQ SCH (04:34)
[2019-01-08 05:43] LABS: Albumin 4.1 g/dL (3.5-5.7); Albumin/Globulin Ratio 1.5 (1.1-2.2); Bilirubin,Total 0.3 mg/dL (0.3-1.0); Calcium 9.9 mg/dL (8.6-10.3); Globulin 2.8 g/dL (2.4-3.5); Potassium 3.4 mEq/L (3.5-5.1); Total Protein 6.9 g/dL (6.4-8.9)
[2019-01-08] MEDS: clonazePAM 1 MG TABLET PO SCH (07:53)
[2019-01-08] MEDS: Aspirin Enteric Coated 81 MG Tablet PO SCH (07:53)
[2019-01-08] MEDS: Famotidine 20 MG TABLET PO SCH (07:53)
[2019-01-08] MEDS: traMADol 50 MG TABLET PO SCH (07:53)
--- NOTE | 2019-01-08 10:21 | Discharge Summary ---
- NOTES TO OUTPATIENT PROVIDER Notes to Outpatient Provider: f/u with PCP within 2 weeks. Orders not resulted at time of discharge: Pending orders 01/08/19 10:00 US liver [US] Routine Date of Encounter: 01/08/19 Time of Encounter: 10:19 - Discharge Diagnosis (1) Headache Priority: Primary Status: Acute Qualifiers: Headache type: unspecified Headache chronicity pattern: acute headache Intractability: not intractable Qualified Code(s): R51 - Headache (2) Generalized weakness Priority: Primary Status: Acute (3) Elevated transaminase level Priority: Primary Status: Acute (4) Chronic kidney disease Priority: Secondary Status: Chronic Qualifiers: Chronic kidney disease stage: stage 3 (moderate) Qualified Code(s): N18.3 - Chronic kidney disease, stage 3 (moderate) (5) Migraine Priority: Secondary Status: Chronic Qualifiers: Migraine type: without aura Status migrainosus presence: without status migrainosus Intractability: not intractable Qualified Code(s): G43.009 - Migraine without aura, not intractable, without status migrainosus (6) DVT prophylaxis Priority: Primary Status: Acute Hospital course: Ms. Martinez is a 63 year old female history of chronic kidney disease presents to the emergency department for weakness headache and dizziness. States for the past few days she has been more weak. She began developing a headache to the left side. She has photophobia with nausea. No vomiting. She has a history of migraines states this feels similar. She denies any fevers. She does report recent cough and congestion. She is experiencing some chest discomfort in the mid epigastric region without radiation. She was told by her bank compliance officer Dr. Noriega to increase her fluid intake. Due to her illness she has not been drinking as much. She denies any urinary symptoms. She did have a influenza vaccine this year. History of hysterectomy and cholecystectomy. In the ED, she was notable to have low blood pressure and bradycardia. Labs revealed elevated AST/LT/LP, elevated BUN/creatinine and creatinine. Patient will be admitted for further evaluation. Patient blood pressure medicine including Lasix was discontinued. Viral hepatitis panel was negative. She was treated with supportive care and her symptoms including headache, nausea, vomiting, dizziness, and weakness have significantly improved. Renal function has improved to her baseline. Her transaminases and the ALP returned to normal limits. Right upper quadrant Doppler was unremarkable. Patient is discharged home today, she was instructed to follow-up with PCP within 2 weeks. Discharge discussed with: patient Time spent discussing smoking cessation with patient: more than 10 minutes - Time Spent with Patient Total time spent providing and/or coordinating discharge services: Time spent: Greater than 30 minutes - Discharge Medications Prescriptions: Continue Levothyroxine [Synthroid] 37.5 mcg PO 0630 Acetaminophen/Butalbital/Caffe [Fioricet] 1 each PO Q6HR PRN PRN Reason: Migraine Headache Simvastatin [Zocor] 40 mg PO HS Famotidine [Pepcid] 20 mg PO DAILY Amlodipine Besylate 10 mg PO DAILY Tramadol HCl [Ultram] 50 mg PO Q6H Tizanidine HCl 4 mg PO Q6H Spironolactone 50 mg PO BID Furosemide [Lasix] 20 mg PO DAILY PRN PRN Reason: Swelling cloNIDine HCl [CloNIDine HCl] 0.1 mg PO BID PRN PRN Reason: See Comments clonazePAM [Clonazepam] 1 mg PO Q6H Atenolol [Tenormin] 50 - 75 mg PO HS PRN PRN Reason: See Comments L. Acidophilus/Bifid. Animalis [One-A-Day Trubiotics 2 Bill Cp] 1 each PO DAILY Aspirin [Lo-Dose Aspirin EC] 81 mg PO DAILY Home Medications: Acetaminophen/Butalbital/Caffe [Fioricet] 1 each PO Q6HR PRN 01/06/19 [History] Amlodipine Besylate 10 mg PO DAILY 01/06/19 [History] Aspirin [Lo-Dose Aspirin EC] 81 mg PO DAILY 01/06/19 [History] Atenolol [Tenormin] 50 - 75 mg PO HS PRN 01/06/19 [History] Famotidine [Pepcid] 20 mg PO DAILY 01/06/19 [History] Furosemide [Lasix] 20 mg PO DAILY PRN 01/06/19 [History] L. Acidophilus/Bifid. Animalis [One-A-Day Trubiotics 2 Bill Cp] 1 each PO DAILY 01/06/19 [History] Levothyroxine [Synthroid] 37.5 mcg PO 0630 01/06/19 [History] Simvastatin [Zocor] 40 mg PO HS 01/06/19 [History] Spironolactone 50 mg PO BID 01/06/19 [History] Tizanidine HCl 4 mg PO Q6H 01/06/19 [History] Tramadol HCl [Ultram] 50 mg PO Q6H 01/06/19 [History] cloNIDine HCl [CloNIDine HCl] 0.1 mg PO BID PRN 01/06/19 [History] clonazePAM [Clonazepam] 1 mg PO Q6H 01/06/19 [History] Allergies/Adverse Reactions: Allergy/AdvReac Type Severity Reaction Status Date / Time citalopram [From Celexa] Allergy Rash Verified 06/18/18 19:09 glycopyrrolate [From Robinul] Allergy Redness of Verified 06/18/18 19:09 Skin NSAIDS (Non-Steroidal AdvReac See Verified 01/06/19 15:55 Anti-Inflamma Comments IVP Dye Allergy Redness of Uncoded 08/14/15 11:00 Skin Date of admission: 01/06/19 17:53 Primary care physician: Raymond Salazar DO Anticipated date of discharge: 01/08/19 - Constitutional Vitals: Temp Pulse Resp BP Pulse Ox 97.9 F 60 16 143/77 98 01/08/19 06:49 01/08/19 06:49 01/08/19 06:49 01/08/19 06:49 01/08/19 06:49 General appearance: Present: A&O X 3 Exam: PHYSICAL EXAMINATION: GENERAL APPEARANCE: The patient is alert, oriented and in no acute distress. HEENT: Head is normocephalic. The sinuses are nontender. Pupils are equal and reactive. The nares are patent. Oropharynx clear without lesions. NECK: neck pain illicited when beding head over to chest. HEART: Regular rate and rhythm. LUNGS: No crackles or wheezes are heard. ABDOMEN: Soft, nontender, nondistended with good bowel sounds heard. Inguinal area is normal. EXTREMITIES: Without cyanosis, clubbing or edema. NEUROLOGICAL: Gross nonfocal. SKIN: Warm and dry without any rash. - Patient Status Disposition: Home, Self-Care Condition: Good Functional capacity at discharge: independent ambulation Overall status at discharge: patient is progressing back to baseline - Discharge Instructions Follow Up With: Jose G Salazar DO [Primary Care Provider] - - Diet and Activity Activity: increase activity as tolerated Diet: advance to your usual diet
[2019-01-08 11:18] VITALS: BP 106/67
--- NOTE | 2019-01-08 16:42 | Electrocardiograph Report ---
[address] [address] Test Date: 2019-01-06 Pat Name: Simin Martinez Department: [id number] Room: 3B65 Gender: F Dining Room Supervisor: : [id number] Requested By: Wm Francis Order Number: [id number] Reading MD: Rosa Edmondson Measurements Intervals [place] Rate: 54 P: 77 [place]: 209 QRS: 37 QRSD: 92 T: 45 QT: 451 QTc: 428 Interpretive Statements Sinus rhythm Abnormal R-wave progression, early transition Electronically Signed On 01-08-2019 16:41:10 EDT by Rosa Edmondson
== END 2019-01-08 16:32 | disposition home or self-care (01) ==
LOC: 3BNU 13:29 → EMEROOARM 13:29 → 3BNU 18:37
PROVIDERS: ADMIT Internal Medicine; ATTEND Student in an Organized Health Care Education/Training Program

== ENCOUNTER 2019-06-06 18:01 | Observation (INO) ==
--- NOTE | 2019-06-06 19:15 | Emergency Department Note ---
Disposition Clinical Impression: Acute renal insufficiency, Elevated troponin I level Chest pain Qualifiers: Chest pain type: unspecified Qualified Code(s): R07.9 - Chest pain, unspecified Disposition: Admitted As Inpatient Condition: Good Time of Disposition: 22:35 General Adult HPI - General Chief complaint: ED Back Pain/Injury Stated complaint: Back, Shoulder and Neck pain Time Seen by Provider: 06/06/19 18:57 Source: patient Limitations: no limitations Nursing Notes Reviewed: Yes Vital Signs Reviewed: Yes - History of Present Illness HPI Narrative: This 3-year-old female presents emergency department with concern for having bilateral shoulder discomfort, worse pain on the left, left lower quadrant abdominal pain and back pain. Patient states that she has had a lot of these symptoms for over a year. She does not really know why she came today. Her son states that she has a lot of times. This is nothing new. She is at her baseline mental status per him. He does report she has an atrophic kidney with a stent on the left. Pain Scale: 10 - Related Data Home Medications Medication Instructions Recorded Confirmed Acetaminophen/Butalbital/Caffe 1 each PO Q6HR PRN 01/06/19 04/08/19 [Fioricet] Amlodipine Besylate 10 mg PO DAILY 01/06/19 04/08/19 Aspirin [Lo-Dose Aspirin EC] 81 mg PO DAILY 01/06/19 04/08/19 Atenolol [Tenormin] 50 - 75 mg PO HS PRN 01/06/19 04/08/19 Famotidine [Pepcid] 20 mg PO DAILY 01/06/19 04/08/19 Furosemide [Lasix] 20 mg PO DAILY PRN 01/06/19 04/08/19 L. Acidophilus/Bifid. Animalis 1 each PO DAILY 01/06/19 04/08/19 [One-A-Day Trubiotics 2 Bill Cp] Levothyroxine [Synthroid] 37.5 mcg PO 0630 01/06/19 04/08/19 Simvastatin [Zocor] 40 mg PO HS 01/06/19 04/08/19 Spironolactone 50 mg PO BID 01/06/19 04/08/19 Tizanidine HCl 4 mg PO Q6H 01/06/19 04/08/19 Tramadol HCl [Ultram] 50 mg PO Q6H 01/06/19 04/08/19 cloNIDine HCl [CloNIDine HCl] 0.1 mg PO BID PRN 01/06/19 04/08/19 clonazePAM [Clonazepam] 1 mg PO Q6H 01/06/19 04/08/19 Allergies Allergy/AdvReac Type Severity Reaction Status Date / Time citalopram [From Celexa] Allergy Rash Verified 06/18/18 19:09 glycopyrrolate [From Robinul] Allergy Redness of Verified 06/18/18 19:09 Skin NSAIDS (Non-Steroidal AdvReac See Verified 01/06/19 15:55 Anti-Inflamma Comments IVP Dye Allergy Redness of Uncoded 08/14/15 11:00 Skin All systems ED: reviewed and negative except as stated. Review of Systems: As Per HPI Constitutional: Denies: fever Cardiovascular: Reports: chest pain Respiratory: Reports: dyspnea Gastrointestinal: Reports: abdominal pain. Denies: nausea, vomiting Genitourinary: Denies: urgency, dysuria Musculoskeletal: Reports: back pain Neurological: Denies: weakness Past Medical History - Past Medical History Attestation: Yes The following information was validated with the patient. Medical history: Reports: cancer, migraine, renal disease Surgical history: Reports: cholecystectomy, hysterectomy, orthopedic, other Psychiatric history: Reports: no psych history [employer] history: Reports: cervical cancer - Social History Smoking Status: Never smoker Smokeless Tobacco Status: No Alcohol use: Reports: none Drug use: Reports: none Physical Exam - General Limitations: no limitations General appearance: alert, in no apparent distress - Head Head exam: normocephalic - Eye Eye exam: Present: EOMI - ENT ENT exam: mucous membranes moist - Neck Neck exam: Present: trachea midline - Chest Chest inspection: Present: symmetric chest wall rise - Respiratory Respiratory exam: Present: normal lung sounds bilaterally. Absent: respiratory distress, accessory muscle use - Cardiovascular Cardiovascular exam: Present: regular rate, normal rhythm, normal heart sounds - Abdominal Exam Abdominal exam: Present: soft, tenderness. Absent: distention, guarding, rebound, rigidity Abdominal tenderness: Present: LLQ, moderate - Extremities Exam Extremities exam: Present: full ROM, normal capillary refill - Back Exam Back exam: Present: full ROM. Absent: tenderness - Neurological Exam Neurological exam: Present: alert, CN II-XII intact, other (GCS 15) - Psychiatric Psychiatric exam: Present: flat affect, other (Patient very slow in responses) - Skin Skin exam: Present: warm, dry, intact Course Vital Signs Temperature 97.9 F 06/06/19 18:30 Pulse Rate 79 06/06/19 18:30 Respiratory Rate 16 06/06/19 18:30 Blood Pressure 144/86 06/06/19 18:30 O2 Sat by Pulse Oximetry 98 06/06/19 18:30 Temperature 97.9 F 06/06/19 18:30 Pulse Rate 80 06/06/19 22:16 Respiratory Rate 16 06/06/19 22:16 Blood Pressure 137/74 06/06/19 22:16 O2 Sat by Pulse Oximetry 100 06/06/19 22:16 Oxygen Delivery Oxygen Delivery Room Air Medical Decision Making - MDM Narrative Medical decision making narrative: 63-year-old female presents emergency department with concern for chest, shoulder, back, left lower quadrant abdominal pain and discomfort that is chronic in nature. EKG reveals nonspecific T-wave inversion in V2. Troponin mildly elevated at 0.04. Patient was given aspirin. Patient does have mildly elevated creatinine at 1.85 which may be related to the slight increase of troponin. Do not suspect ACS at this time. However, due to concern for increasing creatinine as well as the elevated troponin, admitted patient for further management. Would request serial troponins as well as further monitoring of her mental status, though not altered, patient does seem odd. CT of head and did not detect any acute intracranial abnormality. CT scan of abdomen and pelvis does not reveal any intra-abdominal or pelvic pathology surgical in nature. Plain films were negative. Electrolytes within normal limits. Admitted to Dr. Lopez. Chest X-Ray 06/06/19 20:03 IMPRESSION: No acute abnormality detected. D/ / Fidencio Smith MD / Fidencio Smith MD Interpreting Provider: Fidencio Smith MD Shoulder X-Ray 06/06/19 20:53 IMPRESSION: No dislocation or gross fracture. D/ / Avtar Wolff MD / Avtar Wolff MD Interpreting Provider: Avtar Wolff MD Head CT 06/06/19 21:34 IMPRESSION: No acute intracranial abnormality. D/ / Carmine Oliver MD / Carmine Oliver MD Interpreting Provider: Carmine Oliver MD Abdomen/Pelvis CT 06/06/19 21:38 IMPRESSION: 1. No acute infective or inflammatory process. 2. Atrophic left kidney with a left renal artery stent. 3. Subtle L2-L3 and L1-L2 retrolisthesis. Unchanged. D/ / Carmine Oliver MD / Carmine Oliver MD Interpreting Provider: Carmine Oliver MD - Lab Data Result diagrams: 06/06/19 19:39 06/06/19 19:39 Lab Results 06/06/19 06/06/19 06/06/19 Range/Units 19:39 19:39 19:39 WBC (4.3-11.1) K/mcL RBC (3.82-4.97) M/mcL Hgb (11.5-15.4) g/dL Hct (35.3-44.9) % MCV (83.0-100.0) fL MCH (28.0-33.3) pg MCHC (31.6-35.5) g/dL RDW (11.5-14.5) % Plt Count (140-400) K/mcL MPV (9.4-12.4) fL Immature Gran % (0-4) % Seg Neutrophils % % Lymphocytes % % Monocytes % % Eosinophils % % Basophils % % Neutrophils # (1.6-8.9) K/mcL Lymphocytes # (0.6-4.6) K/mcL Monocytes # (0.0-1.3) K/mcL Eosinophils # (0.0-0.6) K/mcL Basophils # (0.0-0.2) K/mcL PT 12.7 H (9.4-12.1) Seconds INR 1.1 Sodium (136-145) mEq/L Potassium (3.5-5.1) mEq/L Chloride (98-107) mEq/L Carbon Dioxide (23-29) mEq/L BUN (8-23) mg/dL Creatinine (0.60-1.20) mg/dL Est GFR ( Amer) (> 60) Est GFR (Non-Af Amer) (> 60) BUN/Creatinine Ratio (6-26) Glucose (70-105) mg/dL Calculated Osmolality (280-300) Calcium (8.6-10.3) mg/dL Total Bilirubin 0.4 (0.3-1.0) mg/dL Direct Bilirubin 0.1 (0.0-0.2) mg/dL Indirect Bilirubin 0.3 (0.0-1.2) mg/dL AST 18 (13-39) Units/L ALT 8 (7-52) Units/L Alkaline Phosphatase 92 (34-104) Units/L Ammonia (16-53) mcmol/L Troponin I (< 0.04) ng/mL B-Natriuretic Peptide 54 (Less than 100) pg/mL Serum Total Protein 8.2 (6.4-8.9) g/dL Albumin 4.9 (3.5-5.7) g/dL Globulin 3.3 (2.4-3.5) g/dL Albumin/Globulin Ratio 1.5 (1.1-2.2) Lipase 35 (11-82) Units/L Urine Color (Yellow) Urine Clarity (Clear) Urine pH (5.0-8.0) pH Units Ur Specific [place] (1.010-1.025) Urine Protein (Neg-Trace) mg/dL Urine Glucose (UA) (Normal) mg/dL Urine Ketones (Negative) mg/dL Urine Blood (Negative) Urine Nitrite (Negative) Urine Bilirubin (Negative) Urine Urobilinogen (Normal) mg/dL Ur Leukocyte Esterase (Negative) Urine Microscopic RBC (0-3) per hpf Urine Microscopic WBC (0-3) per hpf Ur Squamous Epith Cells (None-Few) per lpf Urine Bacteria (None-Few) per hpf Hyaline Casts (None-Few) per lpf Ur Culture Indicated? (NO) 06/06/19 06/06/19 06/06/19 Range/Units 19:39 19:39 19:39 WBC 8.8 (4.3-11.1) K/mcL RBC 3.94 (3.82-4.97) M/mcL Hgb 12.1 (11.5-15.4) g/dL Hct 35.7 (35.3-44.9) % MCV 90.6 (83.0-100.0) fL MCH 30.7 (28.0-33.3) pg MCHC 33.9 (31.6-35.5) g/dL RDW 12.3 (11.5-14.5) % Plt Count 313 (140-400) K/mcL MPV 10.5 (9.4-12.4) fL Immature Gran % 0.2 (0-4) % Seg Neutrophils % 66.0 % Lymphocytes % 24.7 % Monocytes % 8.7 % Eosinophils % 0.1 % Basophils % 0.3 % Neutrophils # 5.8 (1.6-8.9) K/mcL Lymphocytes # 2.2 (0.6-4.6) K/mcL Monocytes # 0.8 (0.0-1.3) K/mcL Eosinophils # 0.0 (0.0-0.6) K/mcL Basophils # 0.0 (0.0-0.2) K/mcL PT (9.4-12.1) Seconds INR Sodium 133 L (136-145) mEq/L Potassium 3.7 (3.5-5.1) mEq/L Chloride 95 L (98-107) mEq/L Carbon Dioxide 24 (23-29) mEq/L BUN 44 H (8-23) mg/dL Creatinine 1.85 H (0.60-1.20) mg/dL Est GFR ( Amer) 33 L (> 60) Est GFR (Non-Af Amer) 27 L (> 60) BUN/Creatinine Ratio 24 (6-26) Glucose 94 (70-105) mg/dL Calculated Osmolality 287 (280-300) Calcium 10.6 H (8.6-10.3) mg/dL Total Bilirubin (0.3-1.0) mg/dL Direct Bilirubin (0.0-0.2) mg/dL Indirect Bilirubin (0.0-1.2) mg/dL AST (13-39) Units/L ALT (7-52) Units/L Alkaline Phosphatase (34-104) Units/L Ammonia 24 (16-53) mcmol/L Troponin I 0.04 H* (< 0.04) ng/mL B-Natriuretic Peptide (Less than 100) pg/mL Serum Total Protein (6.4-8.9) g/dL Albumin (3.5-5.7) g/dL Globulin (2.4-3.5) g/dL Albumin/Globulin Ratio (1.1-2.2) Lipase (11-82) Units/L Urine Color (Yellow) Urine Clarity (Clear) Urine pH (5.0-8.0) pH Units Ur Specific [place] (1.010-1.025) Urine Protein (Neg-Trace) mg/dL Urine Glucose (UA) (Normal) mg/dL Urine Ketones (Negative) mg/dL Urine Blood (Negative) Urine Nitrite (Negative) Urine Bilirubin (Negative) Urine Urobilinogen (Normal) mg/dL Ur Leukocyte Esterase (Negative) Urine Microscopic RBC (0-3) per hpf Urine Microscopic WBC (0-3) per hpf Ur Squamous Epith Cells (None-Few) per lpf Urine Bacteria (None-Few) per hpf Hyaline Casts (None-Few) per lpf Ur Culture Indicated? (NO) 06/06/19 Range/Units 20:01 WBC (4.3-11.1) K/mcL RBC (3.82-4.97) M/mcL Hgb (11.5-15.4) g/dL Hct (35.3-44.9) % MCV (83.0-100.0) fL MCH (28.0-33.3) pg MCHC (31.6-35.5) g/dL RDW (11.5-14.5) % Plt Count (140-400) K/mcL MPV (9.4-12.4) fL Immature Gran % (0-4) % Seg Neutrophils % % Lymphocytes % % Monocytes % % Eosinophils % % Basophils % % Neutrophils # (1.6-8.9) K/mcL Lymphocytes # (0.6-4.6) K/mcL Monocytes # (0.0-1.3) K/mcL Eosinophils # (0.0-0.6) K/mcL Basophils # (0.0-0.2) K/mcL PT (9.4-12.1) Seconds INR Sodium (136-145) mEq/L Potassium (3.5-5.1) mEq/L Chloride (98-107) mEq/L Carbon Dioxide (23-29) mEq/L BUN (8-23) mg/dL Creatinine (0.60-1.20) mg/dL Est GFR ( Amer) (> 60) Est GFR (Non-Af Amer) (> 60) BUN/Creatinine Ratio (6-26) Glucose (70-105) mg/dL Calculated Osmolality (280-300) Calcium (8.6-10.3) mg/dL Total Bilirubin (0.3-1.0) mg/dL Direct Bilirubin (0.0-0.2) mg/dL Indirect Bilirubin (0.0-1.2) mg/dL AST (13-39) Units/L ALT (7-52) Units/L Alkaline Phosphatase (34-104) Units/L Ammonia (16-53) mcmol/L Troponin I (< 0.04) ng/mL B-Natriuretic Peptide (Less than 100) pg/mL Serum Total Protein (6.4-8.9) g/dL Albumin (3.5-5.7) g/dL Globulin (2.4-3.5) g/dL Albumin/Globulin Ratio (1.1-2.2) Lipase (11-82) Units/L Urine Color Yellow (Yellow) Urine Clarity Clear (Clear) Urine pH 6.0 (5.0-8.0) pH Units Ur Specific [place] 1.012 (1.010-1.025) Urine Protein Negative (Neg-Trace) mg/dL Urine Glucose (UA) Normal (Normal) mg/dL Urine Ketones Trace H (Negative) mg/dL Urine Blood Negative (Negative) Urine Nitrite Negative (Negative) Urine Bilirubin Negative (Negative) Urine Urobilinogen Normal (Normal) mg/dL Ur Leukocyte Esterase Moderate H (Negative) Urine Microscopic RBC 0-3 (0-3) per hpf Urine Microscopic WBC 5-15 H (0-3) per hpf Ur Squamous Epith Cells Many H (None-Few) per lpf Urine Bacteria Few (None-Few) per hpf Hyaline Casts None Seen (None-Few) per lpf Ur Culture Indicated? YES A (NO) - EKG Data EKG #1 EKG attestation: Yes I reviewed and interpreted this EKG. EKG results narrative: 1922 Heart rate 76 bpm, CT interval 136 ms, QRS duration 100 ms, QT 399 ms, normal axis. Sinus rhythm with no ischemic ST changes. Nonspecific T-wave inversion in V2 which is new.
[2019-06-06 19:50] LABS: Basophils % 0.3 %; Eosinophils % 0.1 %; Hematocrit 35.7 % (35.3-44.9); Hemoglobin 12.1 g/dL (11.5-15.4); Immature Granulocytes % 0.2 % (0-4); Lymphocytes # 2.2 K/mcL (0.6-4.6); Lymphocytes % 24.7 %; Mean Corpuscular HGB Conc 33.9 g/dL (31.6-35.5); Mean Corpuscular Hemoglobin 30.7 pg (28.0-33.3); Mean Corpuscular Volume 90.6 fL (83.0-100.0); Mean Platelet Volume 10.5 fL (9.4-12.4); Monocytes # 0.8 K/mcL (0.0-1.3); Monocytes % 8.7 %; Neutrophils # 5.8 K/mcL (1.6-8.9); Platelet Count 313 K/mcL (140-400); Red Blood Count 3.94 M/mcL (3.82-4.97); Red Cell Distribution Width 12.3 % (11.5-14.5); White Blood Count 8.8 K/mcL (4.3-11.1)
[2019-06-06 20:03] LABS: INR 1.1; Prothrombin Time 12.7 Seconds (9.4-12.1)
[2019-06-06 20:06] LABS: Bilirubin,Urine Negative (Negative); Blood,Urine Negative (Negative); Clarity,Urine Clear (Clear); Color,Urine Yellow (Yellow); Glucose,Urine (UA) Normal (Normal); Ketones,Urine Trace mg/dL (Negative); Leukocyte Esterase,Urine Moderate (Negative); Nitrite,Urine Negative (Negative); Protein,Urine Negative (Neg-Trace); Specific Gravity,Urine 1.012 (1.010-1.025); Urobilinogen,Urine Normal (Normal)
[2019-06-06 20:08] LABS: Bacteria,Urine Few per hpf (None-Few); Hyaline Casts,Urine None Seen per lpf (None-Few); RBC,Urine 0-3 per hpf (0-3); Squamous Epithelial Cell,Urine Many per lpf (None-Few)
[2019-06-06 20:10] LABS: Albumin 4.9 g/dL (3.5-5.7); Albumin/Globulin Ratio 1.5 (1.1-2.2); Bilirubin,Direct 0.1 mg/dL (0.0-0.2); Bilirubin,Indirect 0.3 mg/dL (0.0-1.2); Bilirubin,Total 0.4 mg/dL (0.3-1.0); Globulin 3.3 g/dL (2.4-3.5); Total Protein 8.2 g/dL (6.4-8.9)
[2019-06-06 20:12] LABS: Calcium 10.6 mg/dL (8.6-10.3); Potassium 3.7 mEq/L (3.5-5.1)
[2019-06-06 20:15] LABS: Troponin I 0.04 ng/mL (< 0.04)
[2019-06-06] MEDS ORDERED: 0.9 % Sodium Chloride 1,000 ML IVC ONE ×2 (20:42→22:00)
[2019-06-06] MEDS ORDERED: Aspirin 81 MG TAB.CHEW PO STA (22:00)
--- NOTE | 2019-06-07 01:40 | Internal Med History&Physical ---
Date of Encounter: 06/07/19 Time of Encounter: 01:36 Internal Medicine - H&P: HPI Chief complaint: back pain Admitted From: Home Plans for Post Hospital Care: Home History of present illness: Ms. Martinez is a 63 year old female with past medical history of CKD stage III with 1 functional left kidney status post stenting, cholecystectomy, hysterectomy presented to the ED for back pain. [id number] encounter occurred at 1 AM. Patient reported having back pain for a few months that is generalized occurring almost fine worsened on exertion and movement improves with rest no association with fever, chills, nausea, vomiting or chest pain or shortness or breath. Patient reported abdominal pain that has been intermittent low side and difficult to describe or localize with patient trying to palpate. Patient admits stones with intake of aspirin 81 mg which he takes due to history of heart attack a few years back with no stenting. Patient denied having chest pain or ever having history of chest pain the past few days the biggest concern is the back that debilitating the patient. The patient reported that she had already plans to go to the [facility] because she spoke with God and told her mom will in June. Patient also reports that she recently lost her son to IV drug usage. Reviewed patient's past medical, surgical, family and social history. CODE STATUS confirmed to be full code Past Med Surg Social Fam HX - Past Medical History Medical history: cancer, migraine, renal disease Additional medical history: Cervical CA Psychiatric history: no psych history - Past Surgical History Surgical History: cholecystectomy, hysterectomy, orthopedic, other Additional surgical history: 1 Kidney - Social History Smoking Status: Never smoker Smokeless Tobacco Status: No Alcohol use: none Drug use: none - Family History Father Hx Family Cancer: Yes (prostate, bladder) Mother Hx Family Neurologic Disorders: Yes (TIAs) Internal Medicine - H&P: Meds Acetaminophen/Butalbital/Caffe [Fioricet] 1 each PO Q6HR PRN 01/06/19 [History] Amlodipine Besylate 10 mg PO DAILY 01/06/19 [History] Aspirin [Lo-Dose Aspirin EC] 81 mg PO DAILY 01/06/19 [History] Atenolol [Tenormin] 50 - 75 mg PO HS PRN 01/06/19 [History] Furosemide [Lasix] 20 mg PO DAILY PRN 01/06/19 [History] L. Acidophilus/Bifid. Animalis [One-A-Day Trubiotics 2 Bill Cp] 1 each PO DAILY 01/06/19 [History] Levothyroxine [Synthroid] 37.5 mcg PO 0630 01/06/19 [History] Simvastatin [Zocor] 40 mg PO HS 01/06/19 [History] Spironolactone 50 mg PO BID 01/06/19 [History] Tizanidine HCl 4 mg PO Q6H 01/06/19 [History] Tramadol HCl [Ultram] 50 mg PO Q6H 01/06/19 [History] cloNIDine HCl [CloNIDine HCl] 0.1 mg PO BID PRN 01/06/19 [History] clonazePAM [Clonazepam] 1 mg PO Q6H 01/06/19 [History] Cholecalciferol (D-3) [Vitamin D] 5,000 unit PO Q1W 06/07/19 [History] Allergy/AdvReac Type Severity Reaction Status Date / Time citalopram [From Celexa] Allergy Rash Verified 06/18/18 19:09 glycopyrrolate [From Robinul] Allergy Redness of Verified 06/18/18 19:09 Skin NSAIDS (Non-Steroidal AdvReac See Verified 01/06/19 15:55 Anti-Inflamma Comments IVP Dye Allergy Redness of Uncoded 08/14/15 11:00 Skin All Systems PM: A 10-system review of systems was performed and is negative for pertinent findings except as documented above in the HPI. Review of systems: General: + unintentional weightloss, No fever Head: No headahce, No injury. Ears: No discharge, No earache Eyes: No drainage, No eye pain Mouth and Throat: No new ulcers, No pain Nose and Sinus: No new congestion, No pain, Respiratory: No cough, No sputum production, No dyspnea Cardiovascular: No chest pain, No palpitations. Gastrointestinal: No nausea, No vomiting. + abdominal pain. Genital Tract: No discharge, No pain Urinary Tract: No dysuria, No discharge. MSK: + new/worsening joint pain, + new/worsening muscle ache. Endocrine: No cold intolerance, No polyuria Psychological: No suicidal, No homocidal ideation. - Constitutional Vitals: Temp Pulse Resp BP Pulse Ox 97.8 F 75 16 121/75 100 06/06/19 23:49 06/06/19 23:49 06/06/19 23:49 06/06/19 23:49 06/06/19 23:49 Exam: General Appearance: Appearing older than age,frail, malnourished in mild acute distress. Head: Atraumatic normocephalic Skin: Normal texture, dry skin turgor. Eyes: Conjunctivae pale with no erythema, drainage, or ulcers. Anicteric. Neck: No Lymphadenopathy in the anterior/posterior cervical chain. No thyromegaly, masses or ulcers. Trachea midline. Heart: RRR, Capillary refill 3 seconds Lungs: No accessory muscle usage, lungs clear to auscultation bilaterally. Extremities: No pitting edema, No clubbing, No cyanosis. Abdomen: Non-distended, normoactive bowel sounds. non-tender to palpation, no hepatomegally. No guarding. Neuro: AOx3 with no new sensory loss or focal deficits. MSK: Strength 5/5 Upper extremity equal bilaterally. Strength 5/5 Lower extremity equal bilaterally Internal Med - H&P Results - Labs CBC & Chem 7: 06/07/19 02:35 06/07/19 02:35 Labs: Short CBC 06/06/19 Range/Units 19:39 WBC 8.8 (4.3-11.1) K/mcL Hgb 12.1 (11.5-15.4) g/dL Hct 35.7 (35.3-44.9) % Plt Count 313 (140-400) K/mcL Neutrophils # 5.8 (1.6-8.9) K/mcL BMP 06/06/19 19:39 Sodium 133 L Potassium 3.7 Chloride 95 L Carbon Dioxide 24 BUN 44 H Creatinine 1.85 H Glucose 94 Calcium 10.6 H Cardiac Enzymes 06/06/19 Range/Units 19:39 Troponin I 0.04 H* (< 0.04) ng/mL Liver Function 06/06/19 Range/Units 19:39 Total Bilirubin 0.4 (0.3-1.0) mg/dL Direct Bilirubin 0.1 (0.0-0.2) mg/dL AST 18 (13-39) Units/L ALT 8 (7-52) Units/L Alkaline Phosphatase 92 (34-104) Units/L Albumin 4.9 (3.5-5.7) g/dL Urine 06/06/19 Range/Units 20:01 Urine Color Yellow (Yellow) Urine Clarity Clear (Clear) Urine pH 6.0 (5.0-8.0) pH Units Ur Specific [place] 1.012 (1.010-1.025) Urine Protein Negative (Neg-Trace) mg/dL Urine Glucose (UA) Normal (Normal) mg/dL - Impressions ITS Impressions Chest X-Ray 06/06/19 20:03 IMPRESSION: No acute abnormality detected. D/ / Fidencio Smith MD / Fidencio Simth MD Interpreting Provider: Fidencio Smith MD Shoulder X-Ray 06/06/19 20:53 IMPRESSION: No dislocation or gross fracture. D/ / Avtar Wolff MD / Avtar Wolff MD Interpreting Provider: Avtar Wolff MD Head CT 06/06/19 21:34 IMPRESSION: No acute intracranial abnormality. D/ / Carmine Oliver MD / Carmine Oliver MD Interpreting Provider: Carmine Oliver MD Abdomen/Pelvis CT 06/06/19 21:38 IMPRESSION: 1. No acute infective or inflammatory process. 2. Atrophic left kidney with a left renal artery stent. 3. Subtle L2-L3 and L1-L2 retrolisthesis. Unchanged. D/ / Carmine Oliver MD / Carmine Oliver MD Interpreting Provider: Carmine Oliver MD - Summary of Assessment and Plan Summary of Assessment and Plan: 1.Back pain with no cauda equina, radicular symptoms, or midline spinal tenderness: PT evaluation. 2.Elevated troponin: Patient denies history of chest pain however does have risk factors [hypertension, hyperlipidemia, 25 pack years of smoking, history of CAD] Reviewed EKG, trend troponin. Aspirin given in the ED 3.acute on chronic kidney disease stage III: Etiology unclear urine studies ordered. Patient reported having 1 kidney due to the right side damaged due to uncontrolled hypertension. Patient also reported a left renal stent was placed patient followed up with nephrology outpatient regularly Nephrology consultation. 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 UA showing no proteinuria. X-rays are showing no lytic lesions Checking ionized caclium and PTH. 5.Malnutrition: Nutrition consultation DVT prophylaxis: Heparin Disposition: Less than 2 day stay - Time Spent With Patient Total time spent is greater than 36 minutes 50% in coordination of care (as documented) at patient's floor/unit and/or counseling patient: Greater than 35 minutes
[2019-06-07] MEDS ORDERED: Ondansetron ODT 4 MG TAB.RAPDIS SL PRN (01:58)
[2019-06-07] MEDS ORDERED: Naloxone 0.4 MG/ML INJ IVP PRN (01:58)
[2019-06-07] MEDS ORDERED: 0.9 % Sodium Chloride 1,000 ML IVC SCH (02:00)
[2019-06-07 02:52] LABS: Basophils % 0.3 %; Eosinophils % 0.2 %; Hematocrit 33.4 % (35.3-44.9); Hemoglobin 10.9 g/dL (11.5-15.4); Immature Granulocytes % 0.3 % (0-4); Lymphocytes # 2.6 K/mcL (0.6-4.6); Lymphocytes % 41.6 %; Mean Corpuscular HGB Conc 32.6 g/dL (31.6-35.5); Mean Corpuscular Hemoglobin 30.8 pg (28.0-33.3); Mean Corpuscular Volume 94.4 fL (83.0-100.0); Mean Platelet Volume 10.3 fL (9.4-12.4); Monocytes # 0.4 K/mcL (0.0-1.3); Neutrophils # 3.1 K/mcL (1.6-8.9); Platelet Count 258 K/mcL (140-400); Red Blood Count 3.54 M/mcL (3.82-4.97); Red Cell Distribution Width 12.2 % (11.5-14.5); Segmented Neutrophils % 50.6 %; White Blood Count 6.2 K/mcL (4.3-11.1)
[2019-06-07 02:52] LABS: VBG Ionized Calcium 1.17 mmol/L (1.15-1.35)
[2019-06-07 03:14] LABS: Albumin/Globulin Ratio 1.5 (1.1-2.2); Bilirubin,Total 0.3 mg/dL (0.3-1.0); Calcium 8.8 mg/dL (8.6-10.3); Chol/HDL Ratio 5.4 (0-4.9); Globulin 2.7 g/dL (2.4-3.5); Magnesium 1.6 mg/dL (1.6-2.6); Phosphorous 2.8 mg/dL (2.7-4.5); Potassium 3.2 mEq/L (3.5-5.1); Total Protein 6.7 g/dL (6.4-8.9)
[2019-06-07] MEDS ORDERED: Potassium Chloride Elixir 20 MEQ/15 ML UDC PO ONE (03:45)
[2019-06-07] MEDS ORDERED: cloNIDine HCl 0.1 MG TABLET PO PRN (03:46)
[2019-06-07] MEDS: traMADol 50 MG TABLET PO SCH ×3 (04:06→18:59)
[2019-06-07] MEDS: *HR* Heparin 5,000 UNIT/ML VIAL SQ SCH ×3 (06:25→21:24)
[2019-06-07] MEDS ORDERED: Furosemide 20 MG TABLET PO PRN (08:58)
[2019-06-07] MEDS: amLODIPine 5 MG TABLET PO SCH (10:28)
[2019-06-07] MEDS: Aspirin Enteric Coated 81 MG Tablet PO SCH (10:28)
[2019-06-07] MEDS: tiZANidine 4 MG TABLET PO SCH ×3 (10:38→21:23)
[2019-06-07] MEDS: Lactobacillus 1 EACH CAP.SPRINK PO SCH (10:38)
[2019-06-07] MEDS: clonazePAM 1 MG TABLET PO SCH ×3 (10:38→21:23)
[2019-06-07] MEDS: Acetaminophen/Butalbital/CaffeineTABLET PO PRN ×2 (10:38→17:53)
--- NOTE | 2019-06-07 15:42 | Nephrology Consult Note ---
Date of Encounter: 06/07/19 Time of Encounter: 15:00 Assessment and Plan (1) FELISA (acute kidney injury) Current Visit: Yes Status: Acute Mildly elevated SCr with mild hyper calcemia responsive to IVF UOP noted at 300cc so far today Continue po/ivf fluids as tolerated Avoid nephrotoxins if possible Urine studies unremarkable (2) Stage 3 chronic kidney disease Current Visit: Yes Status: Acute Baseline GFr in the 30-40s (3) Hypercalcemia Current Visit: Yes Status: Acute Reoslved with IVF but agree with checking PTH and vitamin D levels and perhaps PTHrp History of Present Illness - Reason for Consult Consult date: 06/07/19 Acute Kidney Injury, Chronic Kidney Disease Requesting physician: Gaetano Mckeon - History of Present Illness 63 year old female with past medical history of HTN, CAD and CKD stage III with solitary kidney s/p stent follows with Dr Noriega presenting for back pain rad iating to her flank and lower abdomen. Renal consulted for elevated SCr at 1.85, GFR 27 improved to 1.45, GFR 35 with baseline at 1.2 to 1.6, GFR 30-40s this year. Calcium also noted mildly elevated at 10.6 improving to normal today. Pt seen and examined with no new complaints. No urinary sxs. CT A/P showed atrophic left kidney with left renal artery stent in place Past Med Surg Social Fam HX - Past Medical History Medical history: cancer, migraine, renal disease Additional medical history: Cervical CA Psychiatric history: no psych history - Past Surgical History Surgical History: cholecystectomy, hysterectomy, orthopedic, other Additional surgical history: 1 Kidney - Social History Smoking Status: Never smoker Smokeless Tobacco Status: No Alcohol use: none Drug use: none - Family History Father Hx Family Cancer: Yes (prostate, bladder) Mother Hx Family Neurologic Disorders: Yes (TIAs) Medications and Allergies Acetaminophen/Butalbital/Caffe [Fioricet] 1 each PO Q6HR PRN 01/06/19 [History] Amlodipine Besylate 10 mg PO DAILY 01/06/19 [History] Aspirin [Lo-Dose Aspirin EC] 81 mg PO DAILY 01/06/19 [History] Atenolol [Tenormin] 50 - 75 mg PO HS PRN 01/06/19 [History] Furosemide [Lasix] 20 mg PO DAILY PRN 01/06/19 [History] L. Acidophilus/Bifid. Animalis [One-A-Day Trubiotics 2 Bill Cp] 1 each PO DAILY 01/06/19 [History] Levothyroxine [Synthroid] 37.5 mcg PO 0630 01/06/19 [History] Simvastatin [Zocor] 40 mg PO HS 01/06/19 [History] Spironolactone 50 mg PO BID 01/06/19 [History] Tizanidine HCl 4 mg PO Q6H 01/06/19 [History] Tramadol HCl [Ultram] 50 mg PO Q6H 01/06/19 [History] cloNIDine HCl [CloNIDine HCl] 0.1 mg PO BID PRN 01/06/19 [History] clonazePAM [Clonazepam] 1 mg PO Q6H 01/06/19 [History] Cholecalciferol (D-3) [Vitamin D] 5,000 unit PO Q1W 06/07/19 [History] Allergy/AdvReac Type Severity Reaction Status Date / Time citalopram [From Celexa] Allergy Rash Verified 06/18/18 19:09 glycopyrrolate [From Robinul] Allergy Redness of Verified 06/18/18 19:09 Skin NSAIDS (Non-Steroidal AdvReac See Verified 01/06/19 15:55 Anti-Inflamma Comments IVP Dye Allergy Redness of Uncoded 08/14/15 11:00 Skin Review of Systems All Systems review (narrative): The rest of the systems are negative Constitutional: fatigue (admits) Cardiovascular: chest pain (denies) Respiratory: dyspnea (denies) Gastrointestinal: abdominal pain (admits but resolved) Musculoskeletal: back pain (admits, now resolved) Exam - Vital Signs Vital signs: Initial Vital Signs Temp Pulse Resp BP Pulse Ox 97.9 F 79 16 144/86 98 06/06/19 18:30 06/06/19 18:30 06/06/19 18:30 06/06/19 18:30 06/06/19 18:30 Vital Signs - Last 8 Hours Temp Pulse Resp BP Pulse Ox 06/07/19 11:11 97.4 F L 76 15 152/83 99 Intake and Output 06/06/19 06/07/19 06/07/19 23:59 07:59 15:59 Intake Total 1000 / 1999 1000 / 3300 2300 / 3300 Output Total 300 / 300 Balance 1000 / 1999 1000 / 3000 2000 / 3000 Intake: IV Fluids 999 / 1999 1000 / 1800 800 / 1800 0.9 % Sodium Chloride 1,000 ML 999 / 1999 1000 / 1800 800 / 1800 @ 125 mls/hr IVC .Q8H [facility] Rx#: [id number] Oral 1500 / 1500 Output: Urine 300 / 300 Other: Meal Lunch Percent of Meal Consumed 10% Weight 52.5 kg 52.5 kg Patient Weight 06/07/19 23:59 Weight 52.5 kg - General Appearance General appearance: well-developed, well-nourished EENT: ATNC, mucous membranes moist Neck: no JVD, supple Respiratory: clear Cardiology: no edema, normal S1, normal S2 Gastrointestinal: no tenderness, no guarding Integumentary: warm and dry Neurologic: no focal deficit Musculoskeletal: no deformities Psychiatric: mood/affect appropriate, cooperative Results - Lab Results 06/07/19 02:35 06/07/19 02:35 Most recent lab results 06/07/19 10:00 Urine Sodium 83.9 Consult Discharge Plan - Plan Referrals: Jose G Salazar DO [Primary Care Provider] -
[2019-06-07 15:43] LABS: Immature Reticulocyte % 8.8 % (11.0-38.0); Retculocyte # 0.04 M/mcL (0.05-0.10); Reticulocyte % 1.1 % (1.6-2.8)
[2019-06-07 15:53] LABS: % Iron Saturation 20 % (15-50); Iron 55 mcg/dL (50-170); Transferrin 196 mg/dL (203-362)
[2019-06-07 16:07] LABS: Thyroid Stimulating Hormone 1.202 mcIU/mL (0.340-5.600)
[2019-06-07 16:11] LABS: Ferritin 79 ng/mL (10-120)
[2019-06-07 16:17] LABS: Vitamin B12 239 pg/mL (250-1100)
[2019-06-07 16:18] LABS: Vitamin D 25 Hydroxy 60 ng/mL (30-80)
--- NOTE | 2019-06-07 17:36 | Electrocardiograph Report ---
[address] [address] Test Date: 2019-06-06 Pat Name: Simin Martinez Department: EXAM5 Room: 3B55 Gender: F [employer]ilities [employer] Director: : [id number] Requested By: Yoni Mahoney Order Number: [id number] Reading MD: Alvarez Quintero Measurements Intervals [place] Rate: 76 P: 71 ME: 136 QRS: 46 QRSD: 100 T: 35 QT: 399 QTc: 449 Interpretive Statements Sinus rhythm Abnormal R-wave progression, early transition Borderline T abnormalities, anterior leads Electronically Signed On 06-07-2019 17:35:08 EDT by Alvarez Quintero
[2019-06-08] MEDS: traMADol 50 MG TABLET PO SCH ×2 (00:11→05:53)
[2019-06-08] MEDS: clonazePAM 1 MG TABLET PO SCH ×2 (03:06→09:09)
[2019-06-08] MEDS: tiZANidine 4 MG TABLET PO SCH ×2 (03:06→09:09)
[2019-06-08] MEDS: *HR* Heparin 5,000 UNIT/ML VIAL SQ SCH (05:54)
[2019-06-08 07:23] VITALS: BP 126/76
--- NOTE | 2019-06-08 08:52 | Discharge Summary ---
- NOTES TO OUTPATIENT PROVIDER Notes to Outpatient Provider: f/u with PCP within a week. Date of Encounter: 06/08/19 Time of Encounter: 08:49 - Discharge Diagnosis (1) Unintentional weight loss Priority: Primary Status: Acute (2) Anorexia Priority: Primary Status: Acute (3) Headache Priority: Secondary Status: Chronic Qualifiers: Headache type: unspecified Headache chronicity pattern: acute headache Intractability: not intractable Qualified Code(s): R51 - Headache (4) Migraine Priority: Secondary Status: Chronic Qualifiers: Migraine type: without aura Status migrainosus presence: without status migrainosus Intractability: not intractable Qualified Code(s): G43.009 - Migraine without aura, not intractable, without status migrainosus (5) Stage 3 chronic kidney disease Priority: Secondary Status: Chronic (6) Hypercalcemia Priority: Primary Status: Acute (7) DVT prophylaxis Priority: Primary Status: Acute Hospital course: Ms. Martinez is a 63 year old female with past medical history of CKD stage III with 1 functional left kidney status post stenting, cholecystectomy, hysterectomy presented to the ED for multiple complaints including chest pain, unintentional weight loss, anorexia, abdominal pain, and the severe back pain. Patient takes aspirin 81 mg at home because of history of heart disease, but she denies prior stent placement. She also underwent EGD in April of this year which revealed biliary gastritis and esophagitis. At that time PPI was prescribed. Patient reported she recently lost her son due to IV drug use and she is still coping with the loss. A CT of abd/pelvis showed no acute infective or inflammatory process, atrophic left kidney with a left renal artery stent, and subtle L2-L3 and L1-L2 retrolisthesis. Initial troponin was 0.04, subsequent ones was 0.03, 0.03, and 0.03. EKG has no acute ST-T change. Initial calcium was 10.6, repeat at 8.8 after patient received IV fluid. PTH was borderline. Thyroid ultrasound was unremarkable. TSH, free T4, and vitamin D 4 normal, although vitamin B12 was slightly decreased. Vitamin B12 supplement was started. On second hospital day, patient stated she feels better, reported absence of chest pain, she attributed to her multiple complaints to emotional stress and recent loss of son. She is discharged home today, f/u with PCP within a week. Discharge discussed with: patient Time spent discussing smoking cessation with patient: more than 10 minutes - Time Spent with Patient Total time spent providing and/or coordinating discharge services: Time spent: Greater than 30 minutes - Discharge Medications Prescriptions: Continued Levothyroxine [Synthroid] 37.5 mcg PO 0630 Acetaminophen/Butalbital/Caffe [Fioricet] 1 tab PO Q6HR PRN PRN Reason: Migraine Headache Simvastatin [Zocor] 40 mg PO HS Amlodipine Besylate 10 mg PO DAILY Tramadol HCl [Ultram] 50 mg PO Q6H PRN PRN Reason: Pain Tizanidine HCl 4 mg PO Q6H PRN PRN Reason: Muscle Spasm Spironolactone 50 mg PO BID cloNIDine HCl [CloNIDine HCl] 0.1 mg PO BID PRN PRN Reason: See Comments clonazePAM [Clonazepam] 1 mg PO Q6H PRN PRN Reason: Anxiety L. Acidophilus/Bifid. Animalis [One-A-Day Trubiotics 2 Bill Cp] 1 cap PO DAILY Aspirin [Lo-Dose Aspirin EC] 81 mg PO DAILY Ergocalciferol (VITAMIN D2) [Vitamin D2] 50,000 unit PO TH Pantoprazole Sodium 20 mg PO DAILY Home Medications: Acetaminophen/Butalbital/Caffe [Fioricet] 1 tab PO Q6HR PRN 01/06/19 [History] Amlodipine Besylate 10 mg PO DAILY 01/06/19 [History] Aspirin [Lo-Dose Aspirin EC] 81 mg PO DAILY 01/06/19 [History] L. Acidophilus/Bifid. Animalis [One-A-Day Trubiotics 2 Bill Cp] 1 cap PO DAILY 01/06/19 [History] Levothyroxine [Synthroid] 37.5 mcg PO 0630 01/06/19 [History] Simvastatin [Zocor] 40 mg PO HS 01/06/19 [History] Spironolactone 50 mg PO BID 01/06/19 [History] Tizanidine HCl 4 mg PO Q6H PRN 01/06/19 [History] Tramadol HCl [Ultram] 50 mg PO Q6H PRN 01/06/19 [History] cloNIDine HCl [CloNIDine HCl] 0.1 mg PO BID PRN 01/06/19 [History] clonazePAM [Clonazepam] 1 mg PO Q6H PRN 01/06/19 [History] Ergocalciferol (VITAMIN D2) [Vitamin D2] 50,000 unit PO TH 06/07/19 [History] Pantoprazole Sodium 20 mg PO DAILY 06/07/19 [History] Allergies/Adverse Reactions: Allergy/AdvReac Type Severity Reaction Status Date / Time citalopram [From Celexa] Allergy Rash Verified 06/18/18 19:09 glycopyrrolate [From Robinul] Allergy Redness of Verified 06/18/18 19:09 Skin NSAIDS (Non-Steroidal AdvReac See Verified 01/06/19 15:55 Anti-Inflamma Comments IVP Dye Allergy Redness of Uncoded 08/14/15 11:00 Skin Date of admission: 06/06/19 22:59 Primary care physician: Raymond Salazar DO Consults: 06/07/19 01:58 Consult to Nephrology [CONS] Routine Consulting Provider: [facility]KATHY/BENNY/PONCHO Reason for Consult: ESRD, anemia Call Completed: No Consult to Occupational Therapy [CONS] Routine Comment: Evaluate, develop and implement POC Reason for Consult: Evaluate and treat for weakness. Does patient have active BEDREST order?: No Is patient medically & hemodynamically stable?: Yes Patient assessed for mobility or mobilized this visit?: No Consult to Physical Therapy [CONS] Routine Comment: Evaluate, develop and implement POC Reason for Consult: Evaluation and treatment. Does patient have active BEDREST order?: No Is patient medically & hemodynamically stable?: Yes Patient assessed for mobility or mobilized this visit?: No 06/07/19 02:00 Consult to Dialysis [CONS] ONCE 06/07/19 02:03 Consult to Nutrition [CONS] Routine Comment: Consulting Provider: NUTRITION Reason for Dietary Consult: Other Other:: Severe malnutrition. Anticipated date of discharge: 06/08/19 - Constitutional Vitals: Temp Pulse Resp BP Pulse Ox 97.9 F 70 16 126/76 100 06/08/19 07:23 06/08/19 07:23 06/08/19 07:23 06/08/19 07:23 06/08/19 07:23 General appearance: Present: A&O X 3 Exam: General Appearance: Appearing older than age,frail, malnourished in mild acute distress. Head: Atraumatic normocephalic Skin: Normal texture, dry skin turgor. Eyes: Conjunctivae pale with no erythema, drainage, or ulcers. Anicteric. Neck: No Lymphadenopathy in the anterior/posterior cervical chain. No thyromegaly, masses or ulcers. Trachea midline. Heart: RRR, Capillary refill 3 seconds Lungs: No accessory muscle usage, lungs clear to auscultation bilaterally. Extremities: No pitting edema, No clubbing, No cyanosis. Abdomen: Non-distended, normoactive bowel sounds. non-tender to palpation, no hepatomegally. No guarding. Neuro: AOx3 with no new sensory loss or focal deficits. MSK: Strength 5/5 Upper extremity equal bilaterally. Strength 5/5 Lower extremity equal bilaterally - Patient Status Disposition: Home, Self-Care Condition: Good Functional capacity at discharge: independent ambulation Overall status at discharge: patient is progressing back to baseline - Discharge Instructions Follow Up With: Jose G Salazar DO [Primary Care Provider] - (Appointment has been requested. ) - Diet and Activity Activity: increase activity as tolerated Diet: advance to your usual diet
[2019-06-08] MEDS: Aspirin Enteric Coated 81 MG Tablet PO SCH (09:08)
[2019-06-08] MEDS: Lactobacillus 1 EACH CAP.SPRINK PO SCH (09:08)
[2019-06-08] MEDS: amLODIPine 5 MG TABLET PO SCH (09:10)
[2019-06-08 11:50] LABS: Calcium 9.2 mg/dL (8.6-10.3); Potassium 4.1 mEq/L (3.5-5.1)
[2019-06-08 15:34] LABS: Total Volume 24 Hour,Urine 2.57 Liters (0.60-1.60)
== END 2019-06-08 12:13 | disposition home or self-care (01) ==
LOC: 3BNU 18:01 → EMEROOARM 18:01 → 3BNU 23:20
PROVIDERS: ADMIT Family Medicine; ATTEND Family Medicine

== ENCOUNTER 2019-08-31 17:26 | Inpatient (IN) ==
[2019-08-31] MEDS ORDERED: 0.9 % Sodium Chloride 1,000 ML IVC ONE (17:39)
[2019-08-31] MEDS ORDERED: *HR* HYDROmorphone (PF) 1 MG/ML SYRINGE IVP ONE ×2 (17:39→21:39)
[2019-08-31] MEDS ORDERED: Ondansetron 4 MG/2 ML VIAL IVP ONE ×3 (17:39→22:27)
[2019-08-31 18:01] LABS: Basophils % 0.6 %; Eosinophils % 0.3 %; Hematocrit 39.1 % (35.3-44.9); Hemoglobin 13.4 g/dL (11.5-15.4); Immature Granulocytes % 0.3 % (0-4); Lymphocytes # 2.6 K/mcL (0.6-4.6); Lymphocytes % 35.9 %; Mean Corpuscular HGB Conc 34.3 g/dL (31.6-35.5); Mean Corpuscular Hemoglobin 30.8 pg (28.0-33.3); Mean Corpuscular Volume 89.9 fL (83.0-100.0); Mean Platelet Volume 9.7 fL (9.4-12.4); Monocytes # 0.6 K/mcL (0.0-1.3); Monocytes % 7.9 %; Neutrophils # 3.9 K/mcL (1.6-8.9); Platelet Count 364 K/mcL (140-400); Red Blood Count 4.35 M/mcL (3.82-4.97); Red Cell Distribution Width 12.7 % (11.5-14.5); White Blood Count 7.1 K/mcL (4.3-11.1)
[2019-08-31 18:23] LABS: Albumin 4.6 g/dL (3.5-5.7); Albumin/Globulin Ratio 1.4 (1.1-2.2); Bilirubin,Direct 0.1 mg/dL (0.0-0.2); Bilirubin,Indirect 0.2 mg/dL (0.0-1.0); Bilirubin,Total 0.3 mg/dL (0.3-1.0); Calcium 10.1 mg/dL (8.6-10.3); Globulin 3.4 g/dL (2.4-3.5); Potassium 4.3 mEq/L (3.5-5.1)
[2019-08-31] MEDS ORDERED: 0.9 % Sodium Chloride 500 ML IVC ONE (19:53)
[2019-08-31] MEDS ORDERED: MetroNIDAZOLE 500 MG/100 ML 500 MG/100 ML BAG IVPB ONE (20:34)
[2019-08-31 21:28] LABS: Bilirubin,Urine Negative (Negative); Blood,Urine Negative (Negative); Clarity,Urine Cloudy (Clear); Color,Urine Yellow (Yellow); Glucose,Urine (UA) Normal (Normal); Ketones,Urine Negative (Negative); Leukocyte Esterase,Urine Moderate (Negative); Nitrite,Urine Negative (Negative); Protein,Urine Negative (Neg-Trace); Specific Gravity,Urine 1.012 (1.010-1.025); Urobilinogen,Urine Normal (Normal)
[2019-08-31 21:29] LABS: Bacteria,Urine Many per hpf (None-Few); Hyaline Casts,Urine None Seen per lpf (None-Few); RBC,Urine 0-3 per hpf (0-3); Squamous Epithelial Cell,Urine Many per lpf (None-Few)
[2019-08-31] MEDS: 0.9 % Sodium Chloride 1,000 ML IVC SCH (22:40)
[2019-08-31] MEDS ORDERED: *HR* LORazepam 2 MG/ML VIAL IVP ONE (23:05)
[2019-09-01] MEDS ORDERED: Naloxone 0.4 MG/ML INJ IVP PRN (03:50)
[2019-09-01] MEDS: *HR* HYDROmorphone (PF) 1 MG/ML SYRINGE IVP PRN ×3 (04:26→15:16)
[2019-09-01] MEDS: Ondansetron 4 MG/2 ML VIAL IVP PRN ×3 (04:55→18:41)
[2019-09-01 05:52] LABS: Hematocrit 39.7 % (35.3-44.9); Hemoglobin 13.3 g/dL (11.5-15.4); Mean Corpuscular HGB Conc 33.5 g/dL (31.6-35.5); Mean Corpuscular Hemoglobin 31.5 pg (28.0-33.3); Mean Corpuscular Volume 94.1 fL (83.0-100.0); Mean Platelet Volume 9.9 fL (9.4-12.4); Platelet Count 320 K/mcL (140-400); Red Blood Count 4.22 M/mcL (3.82-4.97); Red Cell Distribution Width 12.8 % (11.5-14.5)
[2019-09-01 05:58] LABS: Prothrombin Time 11.5 Seconds (9.4-12.1)
[2019-09-01 06:19] LABS: Albumin 4.6 g/dL (3.5-5.7); Albumin/Globulin Ratio 1.4 (1.1-2.2); Bilirubin,Total 0.4 mg/dL (0.3-1.0); Calcium 9.4 mg/dL (8.6-10.3); Globulin 3.2 g/dL (2.4-3.5); Potassium 3.8 mEq/L (3.5-5.1); Total Protein 7.8 g/dL (6.4-8.9)
[2019-09-01] MEDS: MetroNIDAZOLE 500 MG/100 ML 500 MG/100 ML BAG IVPB SCH ×3 (08:13→23:25)
[2019-09-01] MEDS: Aspirin Enteric Coated 81 MG Tablet PO SCH (10:44)
[2019-09-01] MEDS: amLODIPine 5 MG TABLET PO SCH (10:45)
[2019-09-01] MEDS: Acetaminophen/Butalbital/CaffeineTABLET PO PRN ×2 (10:56→21:17)
[2019-09-01] MEDS: 0.9 % Sodium Chloride 1,000 ML IVC SCH ×2 (11:51→21:20)
[2019-09-01] MEDS: clonazePAM 1 MG TABLET PO PRN ×2 (13:53→21:17)
[2019-09-02] MEDS: Ondansetron 4 MG/2 ML VIAL IVP PRN ×2 (04:48→10:49)
[2019-09-02] MEDS: *HR* HYDROmorphone (PF) 1 MG/ML SYRINGE IVP PRN (04:48)
[2019-09-02] MEDS: Acetaminophen/Butalbital/CaffeineTABLET PO PRN ×2 (06:28→15:29)
[2019-09-02] MEDS: 0.9 % Sodium Chloride 1,000 ML IVC SCH ×2 (06:29→10:39)
[2019-09-02] MEDS: MetroNIDAZOLE 500 MG/100 ML 500 MG/100 ML BAG IVPB SCH ×2 (08:42→15:52)
[2019-09-02] MEDS: amLODIPine 5 MG TABLET PO SCH (08:42)
[2019-09-02] MEDS: Aspirin Enteric Coated 81 MG Tablet PO SCH (08:43)
[2019-09-02] MEDS: clonazePAM 1 MG TABLET PO PRN ×2 (08:57→15:22)
[2019-09-02 16:02] VITALS: BP 122/73
[2019-09-06] MEDS ORDERED: Ergocalciferol (VIT D2) 50,000 UNIT (1.25MG) CAP PO SCH (09:00)
== END 2019-09-02 19:30 | disposition home or self-care (01) | DRG 392 ==
LOC: 3ANU 17:26 → EMEROOARM 17:26 → SUATTDRO 21:00 → 3ANU 22:00
PROVIDERS: ADMIT Internal Medicine; ATTEND Internal Medicine

== ENCOUNTER 2020-06-30 14:24 | Observation (INO) ==
[2020-06-30] MEDS ORDERED: 0.9 % Sodium Chloride 1,000 ML IVC ONE (14:31)
[2020-06-30 15:06] LABS: Hemoglobin 11.8 g/dL (11.5-15.4); Mean Corpuscular HGB Conc 31.9 g/dL (31.6-35.5); Mean Corpuscular Hemoglobin 30.8 pg (28.0-33.3); Mean Corpuscular Volume 96.6 fL (83.0-100.0); Mean Platelet Volume 9.3 fL (9.4-12.4); Platelet Count 271 K/mcL (140-400); Red Blood Count 3.83 M/mcL (3.82-4.97); Red Cell Distribution Width 12.9 % (11.5-14.5); White Blood Count 5.4 K/mcL (4.3-11.1)
[2020-06-30 15:13] LABS: Prothrombin Time 11.2 Seconds (9.4-12.1)
[2020-06-30 15:16] LABS: Activated Partial Thrombo Time 30.1 Seconds (26.0-36.0)
[2020-06-30 15:23] LABS: BUN/Creatinine Ratio 10 (6-26); Blood Urea Nitrogen 13 mg/dL (8-23); Calcium 9.3 mg/dL (8.6-10.3); Carbon Dioxide 27 mEq/L (23-29); Chloride 102 mEq/L (98-107); Glucose 95 mg/dL (70-105); Osmolality,Calculated 282 (280-300); Potassium 4.3 mEq/L (3.5-5.1); Sodium 136 mEq/L (136-145); eGFR For African Americans 51 (> 60); eGFR For Non-African Americans 42 (> 60)
[2020-06-30 15:24] LABS: Troponin I < 0.03 ng/mL (< 0.04)
[2020-06-30 16:11] LABS: Bilirubin,Urine Negative (Negative); Blood,Urine Negative (Negative); Clarity,Urine Clear (Clear); Color,Urine Colorless (Yellow); Glucose,Urine (UA) Normal (Normal); Ketones,Urine Negative (Negative); Leukocyte Esterase,Urine Negative (Negative); Nitrite,Urine Negative (Negative); Protein,Urine Negative (Neg-Trace); Specific Gravity,Urine 1.007 (1.010-1.025); Urobilinogen,Urine Normal (Normal)
[2020-06-30] MEDS ORDERED: Aspirin 325 MG TABLET PO ONE (16:15)
[2020-06-30 17:05] LABS: Adenovirus Not Detected (Not Detect); Bordetella Pertussis Not Detected (Not Detect); Chlamydophila pneumoniae Not Detected (Not Detect); Coronavirus 229E Not Detected (Not Detect); Coronavirus HKU1 Not Detected (Not Detect); Coronavirus NL63 Not Detected (Not Detect); Coronavirus OC43 Not Detected (Not Detect); Human Metapneumovirus Not Detected (Not Detect); Human Rhinovirus/Enterovirus Not Detected (Not Detect); Influenza A Subtype 2009 H1 Not Detected (Not Detect); Influenza B Not Detected (Not Detect); Mycoplasma pneumoniae Not Detected (Not Detect); Parainfluenza Virus 1 Not Detected (Not Detect); Parainfluenza Virus 2 Not Detected (Not Detect); Parainfluenza Virus 3 Not Detected (Not Detect); Parainfluenza Virus 4 Not Detected (Not Detect); Respiratory Syncytial Virus Not Detected (Not Detect); SARS-CoV-2 Not Detected (Not Detect)
[2020-06-30] MEDS ORDERED: Perflutren Lipid Microsphere 1.3 ML in 0.9 % Sodium Chloride 8.7 ML IVP PRN (17:22)
[2020-06-30] MEDS ORDERED: clonazePAM 1 MG TABLET PO PRN (17:28)
[2020-06-30] MEDS ORDERED: 0.9 % Sodium Chloride 1,000 ML IVC SCH ×2 (17:30→17:36)
[2020-06-30] MEDS ORDERED: Gadolinium Contrast Agent (WT Based) IV PRN (17:33)
[2020-06-30] MEDS ORDERED: cloNIDine HCL 0.1 MG TABLET PO PRN (23:11)
[2020-07-01 05:41] LABS: Prothrombin Time 11.6 Seconds (9.4-12.1)
[2020-07-01 05:52] LABS: Hematocrit 33.1 % (35.3-44.9); Hemoglobin 10.7 g/dL (11.5-15.4); Mean Corpuscular HGB Conc 32.3 g/dL (31.6-35.5); Mean Corpuscular Hemoglobin 31.2 pg (28.0-33.3); Mean Corpuscular Volume 96.5 fL (83.0-100.0); Mean Platelet Volume 9.4 fL (9.4-12.4); Platelet Count 242 K/mcL (140-400); Red Blood Count 3.43 M/mcL (3.82-4.97); White Blood Count 6.4 K/mcL (4.3-11.1)
[2020-07-01 06:03] LABS: Albumin 3.4 g/dL (3.5-5.7); Albumin/Globulin Ratio 1.4 (1.1-2.2); Bilirubin,Total 0.2 mg/dL (0.3-1.0); Calcium 8.7 mg/dL (8.6-10.3); Globulin 2.5 g/dL (2.4-3.5); Potassium 4.2 mEq/L (3.5-5.1); Total Protein 5.9 g/dL (6.4-8.9)
[2020-07-01] MEDS ORDERED: amLODIPine 5 MG TABLET PO PRN (07:56)
[2020-07-01] MEDS ORDERED: Acetaminophen/Butalbital/CaffeineTABLET PO PRN (07:56)
[2020-07-01] MEDS ORDERED: Furosemide 20 MG TABLET PO PRN (07:56)
[2020-07-01] MEDS ORDERED: tiZANidine 4 MG TABLET PO PRN (07:56)
[2020-07-01 08:23] LABS: Estimated Average Glucose 108 mg/dl
[2020-07-01] MEDS ORDERED: Metoclopramide 10 MG/2 ML VIAL IVP ONE (08:37)
[2020-07-01 08:40] VITALS: BP 147/81
[2020-07-01] MEDS ORDERED: Aspirin Enteric Coated 81 MG Tablet PO SCH (09:00)
[2020-07-01] MEDS ORDERED: BuPROPion XL (24 HR) 150 MG TABLET PO SCH (09:00)
== END 2020-07-01 12:14 | disposition home or self-care (01) ==
LOC: 3BNU 14:24 → EMEROOARM 14:24 → SUATTDRO 17:15 → 3BNU 18:04
PROVIDERS: ADMIT Family Medicine; ATTEND Family Medicine

== ENCOUNTER 2021-09-01 09:30 | Inpatient (IN) ==
[2021-09-01] MEDS ORDERED: Aspirin 325 MG TABLET PO ONE (10:16)
[2021-09-01] MEDS ORDERED: 0.9 % Sodium Chloride 500 ML IVC ONE (10:20)
[2021-09-01 10:29] LABS: Basophils % 0.3 %; Eosinophils % 0.1 %; Hematocrit 36.1 % (35.3-44.9); Hemoglobin 12.2 g/dL (11.5-15.4); Immature Granulocytes % 0.3 % (0-4); Lymphocytes # 1.3 K/mcL (0.6-4.6); Lymphocytes % 19.4 %; Mean Corpuscular HGB Conc 33.8 g/dL (31.6-35.5); Mean Corpuscular Hemoglobin 32.8 pg (28.0-33.3); Mean Platelet Volume 9.7 fL (9.4-12.4); Monocytes # 0.4 K/mcL (0.0-1.3); Monocytes % 6.5 %; Platelet Count 249 K/mcL (140-400); Red Blood Count 3.72 M/mcL (3.82-4.97); Red Cell Distribution Width 12.9 % (11.5-14.5); Segmented Neutrophils % 73.4 %; White Blood Count 6.8 K/mcL (4.3-11.1)
[2021-09-01] MEDS: Nitroglycerin 0.4 MG TAB.SUBL SL SCH ×2 (10:41→15:15)
[2021-09-01 10:43] LABS: INR 1.1; Prothrombin Time 12.3 Seconds (9.4-12.1)
[2021-09-01 10:46] LABS: Activated Partial Thrombo Time 36.1 Seconds (26.0-36.0)
[2021-09-01 10:48] LABS: BUN/Creatinine Ratio 9 (6-26); Blood Urea Nitrogen 13 mg/dL (8-23); Calcium 9.4 mg/dL (8.6-10.3); Carbon Dioxide 21 mEq/L (23-29); Chloride 106 mEq/L (98-107); Glucose 84 mg/dL (70-105); Osmolality,Calculated 283 (280-300); Potassium 3.6 mEq/L (3.5-5.1); Sodium 137 mEq/L (136-145); eGFR For African Americans 46 (> 60); eGFR For Non-African Americans 38 (> 60)
[2021-09-01 10:49] LABS: Troponin I < 0.03 ng/mL (< 0.04)
[2021-09-01] MEDS ORDERED: Naloxone 0.4 MG/ML INJ IVP PRN (13:15)
[2021-09-01] MEDS ORDERED: Ondansetron 4 MG/2 ML VIAL IVP PRN (13:15)
[2021-09-01] MEDS ORDERED: cloNIDine HCL 0.1 MG TABLET PO PRN (13:18)
[2021-09-01] MEDS ORDERED: 0.9 % Sodium Chloride 1,000 ML IVC SCH (13:30)
[2021-09-01] MEDS: clonazePAM 1 MG TABLET PO SCH ×2 (14:57→20:35)
[2021-09-01] MEDS: Acetaminophen/Butalbital/CaffeineTABLET PO PRN (15:27)
[2021-09-01] MEDS: *HR* Heparin 5,000 UNIT/ML VIAL SQ SCH (17:26)
[2021-09-01] MEDS: Acetaminophen 325 MG TABLET PO PRN (22:55)
[2021-09-02] MEDS: clonazePAM 1 MG TABLET PO SCH ×4 (01:03→19:46)
[2021-09-02] MEDS: *HR* Heparin 5,000 UNIT/ML VIAL SQ SCH ×2 (05:08→18:21)
[2021-09-02 06:01] LABS: Basophils % 0.3 %; Eosinophils % 0.9 %; Hematocrit 30.1 % (35.3-44.9); Hemoglobin 9.9 g/dL (11.5-15.4); Immature Granulocytes % 0.3 % (0-4); Lymphocytes # 1.2 K/mcL (0.6-4.6); Lymphocytes % 34.9 %; Mean Corpuscular HGB Conc 32.9 g/dL (31.6-35.5); Mean Corpuscular Hemoglobin 31.8 pg (28.0-33.3); Mean Corpuscular Volume 96.8 fL (83.0-100.0); Mean Platelet Volume 9.6 fL (9.4-12.4); Monocytes # 0.3 K/mcL (0.0-1.3); Monocytes % 8.3 %; Neutrophils # 1.9 K/mcL (1.6-8.9); Platelet Count 218 K/mcL (140-400); Red Blood Count 3.11 M/mcL (3.82-4.97); Red Cell Distribution Width 13.2 % (11.5-14.5); Segmented Neutrophils % 55.3 %; White Blood Count 3.4 K/mcL (4.3-11.1)
[2021-09-02] MEDS ORDERED: Regadenoson 0.4 MG/5 ML SYRINGE IVP ONE (06:15)
[2021-09-02 06:21] LABS: Calcium 8.3 mg/dL (8.6-10.3); Chol/HDL Ratio 6.7 (0-4.9); Magnesium 1.6 mg/dL (1.6-2.6); Potassium 3.5 mEq/L (3.5-5.1)
[2021-09-02] MEDS: BuPROPion XL (24 HR) 150 MG TABLET PO SCH (09:35)
[2021-09-02] MEDS: amLODIPine 5 MG TABLET PO SCH (09:35)
[2021-09-02] MEDS: Aspirin Enteric Coated 81 MG Tablet PO SCH (09:35)
[2021-09-02] MEDS: BRIMONIDINE TARTRATE OP SCH (09:37)
[2021-09-02 11:06] LABS: Estimated Average Glucose 103 mg/dl; Hemoglobin A1C 5.2 %
[2021-09-02] MEDS: Acetaminophen 325 MG TABLET PO PRN (22:43)
[2021-09-03] MEDS: clonazePAM 1 MG TABLET PO SCH ×2 (02:01→10:31)
[2021-09-03] MEDS: *HR* Heparin 5,000 UNIT/ML VIAL SQ SCH (05:26)
[2021-09-03 06:42] LABS: BUN/Creatinine Ratio 13 (6-26); Blood Urea Nitrogen 13 mg/dL (8-23); Calcium 8.8 mg/dL (8.6-10.3); Carbon Dioxide 27 mEq/L (23-29); Chloride 107 mEq/L (98-107); Glucose 92 mg/dL (70-105); Osmolality,Calculated 292 (280-300); Potassium 3.4 mEq/L (3.5-5.1); Sodium 141 mEq/L (136-145); eGFR For African Americans > 60 (> 60); eGFR For Non-African Americans 56 (> 60)
[2021-09-03] MEDS: Aspirin Enteric Coated 81 MG Tablet PO SCH (10:27)
[2021-09-03] MEDS: BuPROPion XL (24 HR) 150 MG TABLET PO SCH (10:27)
[2021-09-03] MEDS: amLODIPine 5 MG TABLET PO SCH (10:27)
[2021-09-03] MEDS: BRIMONIDINE TARTRATE OP SCH (10:28)
[2021-09-03] MEDS ORDERED: Regadenoson 0.4 MG/5 ML SYRINGE IVP ONE ×2 (11:22→11:29)
[2021-09-03 14:45] VITALS: BP 151/78; PULSE 94; TEMP 97.9; O2SAT 98
[2021-09-03] MEDS: Acetaminophen/Butalbital/CaffeineTABLET PO PRN (14:50)
== END 2021-09-03 16:30 | disposition home or self-care (01) | DRG 313 ==
LOC: EMEROOARM 09:30 → 3BNU 09:30 → SUATTDRO 13:19 → 3BNU 14:01
PROVIDERS: ADMIT Hospitalist; ATTEND Internal Medicine

== ENCOUNTER 2021-10-20 19:58 | Inpatient (IN) ==
[2021-10-20 22:17] LABS: Basophils % 0.4 %; Hematocrit 38.5 % (35.3-44.9); Hemoglobin 13.1 g/dL (11.5-15.4); Immature Granulocytes % 0.4 % (0-4); Lymphocytes # 1.5 K/mcL (0.6-4.6); Lymphocytes % 20.7 %; Mean Corpuscular Hemoglobin 32.4 pg (28.0-33.3); Mean Corpuscular Volume 95.3 fL (83.0-100.0); Mean Platelet Volume 9.7 fL (9.4-12.4); Monocytes # 0.5 K/mcL (0.0-1.3); Monocytes % 6.7 %; Neutrophils # 5.3 K/mcL (1.6-8.9); Platelet Count 319 K/mcL (140-400); Red Blood Count 4.04 M/mcL (3.82-4.97); Segmented Neutrophils % 71.8 %; White Blood Count 7.4 K/mcL (4.3-11.1)
[2021-10-20 22:32] LABS: Acetaminophen < 10 mcg/mL (10-20); BUN/Creatinine Ratio 23 (6-26); Blood Urea Nitrogen 37 mg/dL (8-23); Calcium 10.7 mg/dL (8.6-10.3); Carbon Dioxide 23 mEq/L (23-29); Chloride 97 mEq/L (98-107); Ethanol < 10 mg/dL (Less than 10); Glucose 139 mg/dL (70-105); Osmolality,Calculated 285 (280-300); Potassium 4.5 mEq/L (3.5-5.1); Salicylate < 2.5 mg/dL (15.0-30.0); Sodium 132 mEq/L (136-145); eGFR For African Americans 38 (> 60); eGFR For Non-African Americans 32 (> 60)
[2021-10-21 01:23] LABS: Influenza A PCR Negative (Negative); Influenza B PCR Negative (Negative); Resp. Syncytial Virus PCR Negative (Negative)
[2021-10-21 01:24] LABS: SARS-CoV-2 by PCR (In House) Negative (Negative)
[2021-10-21 02:06] LABS: Albumin 4.3 g/dL (3.5-5.7); Albumin/Globulin Ratio 1.4 (1.1-2.2); Bilirubin,Direct 0.1 mg/dL (0.0-0.2); Bilirubin,Indirect 0.4 mg/dL (0.0-1.0); Bilirubin,Total 0.5 mg/dL (0.3-1.0); Total Protein 7.3 g/dL (6.4-8.9)
[2021-10-21 02:52] LABS: Bacteria,Urine Few per hpf (None-Few); Bilirubin,Urine Negative (Negative); Blood,Urine Trace (Negative); Clarity,Urine Turbid (Clear); Color,Urine Light-Yellow (Yellow); Glucose,Urine (UA) Normal (Normal); Hyaline Casts,Urine Few per lpf (None Seen); Ketones,Urine 20 mg/dL (Negative); Leukocyte Esterase,Urine Large (Negative); Mucus,Urine Few per lpf (None-Few); Nitrite,Urine Negative (Negative); Protein,Urine 30 mg/dL (Neg-Trace); Specific Gravity,Urine 1.015 (1.010-1.025); Squamous Epithelial Cell,Urine Few per hpf (None-Few); Urobilinogen,Urine Normal (Normal); WBC,Urine 15-30 per hpf (0-3)
[2021-10-21] MEDS ORDERED: cefTRIAXone 1,000 MG in Water for inj. (sterile) 10 ML IVP ONE (03:52)
[2021-10-21 05:37] LABS: Amphetamine Screen,Urine Negative ng/mL (Cutoff=1000); Barbiturate Screen,Urine Positive ng/mL (Cutoff=200); Benzodiazepines Screen,Urine Negative ng/mL (Cutoff=200); Cannabinoid Screen,Urine Negative ng/mL (Cutoff = 50); Cocaine Screen,Urine Negative ng/mL (Cutoff= 300); Opiate Screen,Urine Negative ng/mL (Cutoff=300); Phencyclidine Screen,Urine Negative ng/mL (Cutoff=25)
[2021-10-21] MEDS ORDERED: Naloxone 0.4 MG/ML INJ IVP PRN (05:54)
[2021-10-21] MEDS ORDERED: Ondansetron 4 MG/2 ML VIAL IVP PRN (05:54)
[2021-10-21] MEDS ORDERED: cloNIDine HCL 0.1 MG TABLET PO PRN (06:56)
[2021-10-21] MEDS ORDERED: Gadolinium Contrast Agent (WT Based) IV PRN (09:38)
[2021-10-21] MEDS: 0.9 % Sodium Chloride 1,000 ML IVC SCH ×2 (10:18→20:19)
[2021-10-21 11:53] LABS: Calcium 10.3 mg/dL (8.6-10.3); Potassium 3.5 mEq/L (3.5-5.1)
[2021-10-21] MEDS: clonazePAM 1 MG TABLET PO SCH (15:51)
[2021-10-21] MEDS: BuPROPion XL (24 HR) 150 MG TABLET PO SCH (15:51)
[2021-10-21] MEDS: amLODIPine 5 MG TABLET PO SCH (15:51)
[2021-10-21] MEDS: *HR* Heparin 5,000 UNIT/ML VIAL SQ SCH (16:52)
[2021-10-22] MEDS: clonazePAM 1 MG TABLET PO SCH ×5 (01:10→23:31)
[2021-10-22] MEDS: cefTRIAXone 1,000 MG in 0.9 % Sodium Chloride Mini Bag 100 ML IVPB SCH ×2 (04:26→09:03)
[2021-10-22 05:49] LABS: Hematocrit 30.3 % (35.3-44.9); Mean Corpuscular HGB Conc 32.7 g/dL (31.6-35.5); Mean Corpuscular Hemoglobin 31.4 pg (28.0-33.3); Mean Corpuscular Volume 96.2 fL (83.0-100.0); Mean Platelet Volume 10.1 fL (9.4-12.4); Platelet Count 206 K/mcL (140-400); Red Blood Count 3.15 M/mcL (3.82-4.97); White Blood Count 4.9 K/mcL (4.3-11.1)
[2021-10-22] MEDS: *HR* Heparin 5,000 UNIT/ML VIAL SQ SCH ×2 (05:49→17:35)
[2021-10-22 05:55] LABS: Hemoglobin 9.9 g/dL (11.5-15.4)
[2021-10-22 08:06] LABS: BUN/Creatinine Ratio 22 (6-26); Blood Urea Nitrogen 22 mg/dL (8-23); Calcium 9.1 mg/dL (8.6-10.3); Carbon Dioxide 26 mEq/L (23-29); Chloride 104 mEq/L (98-107); Glucose 89 mg/dL (70-105); Osmolality,Calculated 289 (280-300); Potassium 3.4 mEq/L (3.5-5.1); Sodium 138 mEq/L (136-145); Thyroid Stimulating Hormone 3.752 mcIU/mL (0.340-5.600); eGFR For African Americans > 60 (> 60); eGFR For Non-African Americans 55 (> 60)
[2021-10-22] MEDS: BuPROPion XL (24 HR) 150 MG TABLET PO SCH (09:02)
[2021-10-22] MEDS: amLODIPine 5 MG TABLET PO SCH (09:02)
[2021-10-22] MEDS ORDERED: tiZANidine 4 MG TABLET PO PRN (13:16)
[2021-10-22] MEDS: Acetaminophen/Butalbital/CaffeineTABLET PO PRN (20:36)
[2021-10-23] MEDS: clonazePAM 1 MG TABLET PO SCH ×3 (06:05→16:34)
[2021-10-23] MEDS: *HR* Heparin 5,000 UNIT/ML VIAL SQ SCH ×2 (06:06→16:34)
[2021-10-23 06:49] LABS: Hematocrit 33.3 % (35.3-44.9); Hemoglobin 11.2 g/dL (11.5-15.4); Mean Corpuscular HGB Conc 33.6 g/dL (31.6-35.5); Mean Corpuscular Hemoglobin 32.4 pg (28.0-33.3); Mean Corpuscular Volume 96.2 fL (83.0-100.0); Mean Platelet Volume 10.4 fL (9.4-12.4); Platelet Count 253 K/mcL (140-400); Red Blood Count 3.46 M/mcL (3.82-4.97); Red Cell Distribution Width 13.2 % (11.5-14.5); White Blood Count 5.1 K/mcL (4.3-11.1)
[2021-10-23 07:13] LABS: BUN/Creatinine Ratio 18 (6-26); Blood Urea Nitrogen 18 mg/dL (8-23); Calcium 9.9 mg/dL (8.6-10.3); Carbon Dioxide 29 mEq/L (23-29); Chloride 103 mEq/L (98-107); Glucose 97 mg/dL (70-105); Osmolality,Calculated 288 (280-300); Potassium 3.7 mEq/L (3.5-5.1); Sodium 138 mEq/L (136-145); eGFR For African Americans > 60 (> 60); eGFR For Non-African Americans 56 (> 60)
[2021-10-23] MEDS ORDERED: QUEtiapine Fumarate 25 MG TABLET PO SCH (09:00)
[2021-10-23] MEDS: amLODIPine 5 MG TABLET PO SCH (09:07)
[2021-10-23] MEDS: cefTRIAXone 1,000 MG in 0.9 % Sodium Chloride Mini Bag 100 ML IVPB SCH (09:07)
[2021-10-23] MEDS ORDERED: Melatonin 3 MG TABLET PO PRN (17:31)
[2021-10-24] MEDS: *HR* Heparin 5,000 UNIT/ML VIAL SQ SCH ×2 (05:20→16:55)
[2021-10-24] MEDS: clonazePAM 1 MG TABLET PO SCH ×4 (05:21→16:53)
[2021-10-24 05:38] LABS: Hematocrit 32.5 % (35.3-44.9); Hemoglobin 10.4 g/dL (11.5-15.4); Mean Corpuscular Hemoglobin 31.4 pg (28.0-33.3); Mean Corpuscular Volume 98.2 fL (83.0-100.0); Mean Platelet Volume 9.9 fL (9.4-12.4); Platelet Count 211 K/mcL (140-400); Red Blood Count 3.31 M/mcL (3.82-4.97); Red Cell Distribution Width 13.3 % (11.5-14.5); White Blood Count 3.6 K/mcL (4.3-11.1)
[2021-10-24 05:57] LABS: BUN/Creatinine Ratio 15 (6-26); Blood Urea Nitrogen 15 mg/dL (8-23); Calcium 9.2 mg/dL (8.6-10.3); Carbon Dioxide 32 mEq/L (23-29); Chloride 104 mEq/L (98-107); Glucose 94 mg/dL (70-105); Osmolality,Calculated 287 (280-300); Potassium 3.6 mEq/L (3.5-5.1); Sodium 138 mEq/L (136-145); eGFR For African Americans > 60 (> 60); eGFR For Non-African Americans 56 (> 60)
[2021-10-24] MEDS: amLODIPine 5 MG TABLET PO SCH (08:10)
[2021-10-24] MEDS: Acetaminophen/Butalbital/CaffeineTABLET PO PRN (19:48)
[2021-10-25] MEDS: clonazePAM 1 MG TABLET PO SCH ×4 (00:47→17:03)
[2021-10-25] MEDS: *HR* Heparin 5,000 UNIT/ML VIAL SQ SCH ×2 (06:15→17:03)
[2021-10-25 06:42] LABS: Hematocrit 33.7 % (35.3-44.9); Hemoglobin 10.9 g/dL (11.5-15.4); Mean Corpuscular HGB Conc 32.3 g/dL (31.6-35.5); Mean Corpuscular Hemoglobin 31.6 pg (28.0-33.3); Mean Corpuscular Volume 97.7 fL (83.0-100.0); Mean Platelet Volume 9.8 fL (9.4-12.4); Platelet Count 261 K/mcL (140-400); Red Blood Count 3.45 M/mcL (3.82-4.97); Red Cell Distribution Width 13.2 % (11.5-14.5); White Blood Count 4.3 K/mcL (4.3-11.1)
[2021-10-25 07:03] LABS: BUN/Creatinine Ratio 13 (6-26); Blood Urea Nitrogen 13 mg/dL (8-23); Calcium 9.6 mg/dL (8.6-10.3); Carbon Dioxide 34 mEq/L (23-29); Chloride 100 mEq/L (98-107); Glucose 93 mg/dL (70-105); Osmolality,Calculated 294 (280-300); Potassium 3.6 mEq/L (3.5-5.1); Sodium 142 mEq/L (136-145); eGFR For African Americans > 60 (> 60); eGFR For Non-African Americans 53 (> 60)
[2021-10-25] MEDS: amLODIPine 5 MG TABLET PO SCH (09:10)
[2021-10-25] MEDS: Acetaminophen/Butalbital/CaffeineTABLET PO PRN ×2 (09:15→17:06)
[2021-10-26] MEDS: clonazePAM 1 MG TABLET PO SCH ×2 (00:04→05:27)
[2021-10-26] MEDS: Acetaminophen/Butalbital/CaffeineTABLET PO PRN ×2 (00:04→10:51)
[2021-10-26] MEDS: *HR* Heparin 5,000 UNIT/ML VIAL SQ SCH (05:25)
[2021-10-26 06:53] VITALS: O2SAT 93
[2021-10-26 08:02] VITALS: BP 146/79; PULSE 79; TEMP 97.9
[2021-10-26] MEDS ORDERED: 0.9 % Sodium Chloride 500 ML ONE (08:57)
[2021-10-26] MEDS: amLODIPine 5 MG TABLET PO SCH (10:51)
== END 2021-10-26 11:26 | disposition home or self-care (01) | DRG 689 ==
LOC: 3BNU 19:58 → EMEROOARM 19:58 → SUATTDRO 10-21 04:20 → 3BNU 10-21 05:41
PROVIDERS: ADMIT Family Medicine; ATTEND Registered Nurse